=== PATIENT | male | born 1945 | race Caucasian/White ===

== ENCOUNTER → 2020-05-29 | Outpatient (CLI) | payer MEDICARE ==
[2020-05-29 14:41] LABS: Appearance,Urine Clear (Clear); Bilirubin,Urine Negative (Negative); Blood,Urine Negative (Negative); Color,Urine Light Yellow; Glucose,Urine (UA) Negative (Negative); Ketones,Urine Negative (Negative); Leukocyte Esterase,Urine Negative (Negative); Nitrite,Urine Negative (Negative); Protein,Urine Negative (Negative); Specific Gravity,Urine 1.007 (1.001-1.035); Urobilinogen,Urine <2.0 mg/dL (<2.0)
[2020-05-29 14:47] LABS: HCT 45.9 % (39.0-53.0); HGB 15.5 gm/dL (13.0-17.5); MCH 31.3 pg (25.0-35.0); MCHC 33.8 g/dL (31.0-37.0); MCV 92.7 fL (80.0-100.0); Mean Platelet Volume 8.4; Platelet Count 282 k/uL (150-450); RBC 4.95 m/uL (4.30-5.90); RDW 12.7 % (11.5-15.5); WBC 8.1 k/uL (3.8-10.6)
[2020-05-29 14:54] LABS: Partial Thromboplastin Time 26.1 sec (22.0-30.0); Prothrombin Time 10.5 sec (9.0-12.0)
[2020-05-29 14:57] LABS: Albumin 5.1 g/dL (3.5-5.0); Calcium 9.9 mg/dL (8.4-10.2); Total Bilirubin 0.5 mg/dL (0.2-1.3)
== END | disposition home or self-care (01) ==
LOC: LABPAT 12:46
PROVIDERS: ATTEND Orthopaedic Surgery
DX: Z01.818 Encounter for other preprocedural examination (principal); Z01.812 Encounter for preprocedural laboratory examination
CPT/HCPCS: 36415; 80053; 81003; 85027; 85610; 85730; 86850; 86900; 86901; 87070

== ENCOUNTER 2020-06-10 09:49 | Day surgery (SDC) | payer MEDICARE ==
[2020-06-02 15:09] VITALS: BMI 31.8
[~2020-06-10 09:49] MED LIST: ACETAMINOPHEN TAB 500 MG TAB PO ONE; DEXAMETHASONE SOD PHOSPHATE 10 MG/ML 1 ML VIAL IV ONE; GABAPENTIN 300 MG CAP PO ONE; HYDROcodone/APAP 5-325MG 1 EACH TAB PO PRN; HYDROmorphone 0.5 MG/0.5 ML SYRINGE IVP PRN; LIDOCAINE 1% (10MG/ML) FOR IV START INTRADERMA PRN; MAGNESIUM HYDROXIDE 2,400 MG/10 ML CUP PO PRN; MELOXICAM 7.5 MG TAB PO ONE; NALOXONE 0.4 MG/ML 1 ML VIAL IV PRN; ONDANSETRON 4 MG/2 ML VIAL IVP ONE; ONDANSETRON 4 MG/2 ML VIAL IVP PRN; ROPIVACAINE 246.25 MG, EPINEPHrine 0.5 MG, KETOROLAC 30 MG, cloNIDine HCL/PF 80 MCG, WA... MISCELLANE ONE; TRANEXAMIC ACID 1,000 MG in SODIUM CHLORIDE 0.9% 100 ML IVPB ONE; diazePAM 5 MG TAB PO PRN; hydrOXYzine pamoate 25 MG CAP PO PRN
[2020-06-10] MEDS: LACTATED RINGERS 1,000 ML IV SCH (10:10)
[2020-06-10] MEDS ORDERED: ACETAMINOPHEN TAB 500 MG TAB ONE (10:14)
[2020-06-10] MEDS ORDERED: ONDANSETRON 4 MG/2 ML VIAL ONE (10:14)
[2020-06-10] MEDS ORDERED: PHENYLEPHRINE-0.9% NACL SYG 1 MG/10 ML SYRINGE ONE (11:27)
[2020-06-10] MEDS ORDERED: PROPOFOL 10 MG/ML 20 ML VIAL IV ONE (11:27)
[2020-06-10] MEDS ORDERED: MIDAZOLAM 2 MG/2 ML VIAL ONE (11:27)
[2020-06-10] MEDS ORDERED: TRANEXAMIC ACID 1,000 MG/10 ML VIAL ONE (11:27)
[2020-06-10] MEDS ORDERED: SODIUM CHLORIDE 0.9% 100 ML BAG ONE (11:27)
[2020-06-10] MEDS ORDERED: SODIUM CHLORIDE 0.9% IRRIG 1,000 ML BTL IRRIGATION ONE (11:27)
[2020-06-10] MEDS ORDERED: diphenhydrAMINE 50 MG/ML 1 ML VIAL ONE (11:27)
[2020-06-10] MEDS ORDERED: fentaNYL (PF) 50 MCG/ML 2 ML AMP ONE (11:27)
[2020-06-10] MEDS ORDERED: HEPARIN SODIUM,PORCINE 10,000 UNIT/ML 1 ML VIAL ONE (11:27)
[2020-06-10] MEDS ORDERED: ceFAZolin 3,000 MG in SODIUM CHLORIDE 0.9% IRRIGATIO 3,000 ML IRRIGATION ONE (12:01)
[2020-06-10] MEDS ORDERED: LACTATED RINGERS 1,000 ML IV ONE (12:30)
--- NOTE | 2020-06-10 13:05 | P.OP ---
Date of Procedure: 06/10/20 Preoperative Diagnosis: Severe osteoarthritis right hip Postoperative Diagnosis: Severe osteoarthritis right hip Procedure(s) Performed: Right total hip arthroplasty with a direct anterior approach Implants: Morris and nephew Polarstem size 5 standard Morris & Nephew R3, 3 hole acetabular shell, 54 mm Morris [employer] Nephew reflection 6.5 mm cancellus screw, 20 mm 2 Morris [employer] Nephew R3, XLPE 20 acetabular liner Morris & Nephew Oxinium femoral head 36 m, +12 All components were press-fit. The articulation is Oxinium on polyethylene. Anesthesia: spinal Surgeon: Fabio Murphy Membership Manager #1: Martha Grimm Estimated Blood Loss (ml): 200 (115 mL returned with Cell Saver) Pathology: other (Femoral head) Condition: stable Disposition: PACU Indications for Procedure: After failure of conservative treatment we discussed the surgical and nonsurgical treatment options at length. Patient wishes to proceed with a total hip arthroplasty with a direct anterior approach. Complications specific to this procedure were discussed at length, including but not limited to infection, leg length discrepancy, dislocation, and nerve injury. Covid-19 was also discussed at length with the patient, and they are aware of the current policies and procedures. The patient was given the option of delaying surgery, but they elect to proceed knowing these risks. Patient is aware of all these complications and informed consent was obtained Operative Findings: The operative findings are consistent with severe osteoarthritis of the right hip Description of Procedure: Patient was seen and evaluated in the preoperative area, consent was reviewed, and the surgical site was marked with a skin marker. Patient was then brought to the operating room and given prophylactic antibiotics intravenously. 1 g of Tranexamic acid was also given. A spinal anesthetic was administered by the anesthesia department. The patient was then placed on the [place] table with the bony prominences well-padded. The hip area was then prepped and draped in usual sterile fashion. A universal timeout was then performed, which confirmed the patient's name, surgical site, ALLERGIES, and procedure being performed. Next the incision site was located at 1 cm distal and 1 cm lateral to the anterior superior iliac spine. The skin and subcutaneous tissues were sharply incised. Incision was carefully dissected down to the fascia overlying the tensor fascia flo muscle. This fascia was then incised in line with the incision. Next, using blunt finger dissection, the tensor fascia flo muscle was dissected off its investing fascia. The muscle was then carefully retracted laterally with a cobra retractor over the lateral neck of the femur. Next, the circumflex vessels were identified and cauterized using the AquaMantis device. The anterior hip capsule was then exposed. The capsule was then opened and an inverted T fashion. Cobra retractors were then placed intracapsularly. The proximal femur was then visualized. The femoral neck was then osteotomized appropriate level above the lesser trochanter. Small amount of traction was placed with the [place] table. A small wedge of bone was then removed from the remaining femoral head. Next, using a corkscrew femoral head was easily removed from the acetabulum. On gross visual inspection, the femoral head had complete loss of articular cartilage in multiple periarticular osteophytes. Attention was then turned to the acetabulum. the acetabulum was exposed and any remaining labrum was excised. Sequential reaming of the acetabulum was performed using fluoroscopic guidance. When the appropriate size was reached, a trial was then placed. The position and fit of the trial was checked with fluoroscopy. The trial was then removed. Then, using fluoroscopic guidance, the final implant was impacted at 20 of anteversion and 40 of abduction, and fully seated in the acetabulum. 2 screws were then placed in the acetabulum. Again fluoroscopy was used to check position of the screws. Next, the liner was then impacted, with a 20 elevated liner located in the anterior superior quadrant. Component locking was confirmed. Attention was then directed to the femur. With the aid of the [place] table, the femur was externally rotated to approximately 130, extended, and abducted under the opposite leg. A side hook was then placed under the proximal femur, and the side hook elevator was used to elevate the proximal femur. Retractors were then placed. A capsular release was performed, as well as a release of the conjoined tendon, which afforded excellent visualization of the proximal femur. Next, a box osteotome was used to lateralize the proximal femur. A yacht hand was then used to locate the femoral canal. Sequential broaching was then performed with appropriate size which afforded excellent fixation in the proximal femur. A trial was then placed with appropriate head and neck, and the hip was gently red uced with the aid of the [place] table. Fluoroscopy was then used to check position of the components, as well as to ensure equal leg lengths. The hip was then gently dislocated and the trials were then removed. Final implants were then impacted and the hip was again reduced. Final fluoroscopic x-rays confirmed that the components were in anatomic position, as well as equal leg lengths. The hip was also taken through range of motion, and found to be stable. The hip was then copiously irrigated with antibiotic solution with pulsatile lavage. The hip was then irrigated with Irrisept solution. The soft tissues were then injected with a ropivacaine solution, which consisted of 246.25 mg of ropivacaine, 0.5 mg of epinephrine, 30 mg of Toradol, 80 g of clonidine, and 48.45 mL of sterile water, for a total of 100 mL of fluid injected. A second dose of 1 g of Tranexamic acid was also given. the fascia was then closed with 2-0 strata fix suture. The subcutaneous tissue was closed with 3-0 Vicryl. The subcuticular tissue was closed with 3-0 strata fix suture. The skin was then closed with Dermabond glue and a sterile silver dressing. The patient was then transferred to the recovery room in stable condition. The billing assistant MARLENE Velázquez was required due to the complexity of surgery, and the need for skilled surgical scheduler for positioning, draping, exposure, retraction, and closure of the wound.
--- NOTE | 2020-06-10 13:06 | FL ---
Fluoroscopy History: Rt Anterior Hip RT Anterior Hip. [address] Murphy
--- NOTE | 2020-06-10 13:53 | XR ---
EXAMINATION TYPE: XR Hip Limited RT DATE OF EXAM: 06/10/2020 CLINICAL HISTORY: Postoperative evaluation TECHNIQUE: Single portable view of the right hip was submitted. FINDINGS: Noted are changes of total hip arthroplasty with femoral and acetabular components appearin g well seated. Alignment is anatomic. Postsurgical soft tissue changes are evident. IMPRESSION: Satisfactory postoperative alignment
[2020-06-10] MEDS ORDERED: CYCLOBENZAPRINE 10 MG TAB PO PRN (15:18)
[2020-06-10] MEDS ORDERED: MAGNESIUM OXIDE 400 MG TAB PO PRN (15:18)
[2020-06-10] MEDS ORDERED: MELATONIN 3 MG TABLET PO PRN (15:18)
[2020-06-10] MEDS ORDERED: FAMOTIDINE 20 MG TAB PO PRN (15:18)
[2020-06-10] MEDS: SODIUM CHLORIDE 0.9% 1,000 ML IV SCH ×2 (16:13→22:21)
[2020-06-10] MEDS: oxyCODONE-APAP 5-325MG 1 EACH TAB PO PRN (18:10)
[2020-06-10] MEDS ORDERED: NIACIN TR 500 MG CAPLET PO SCH (21:00)
[2020-06-10] MEDS ORDERED: SENNOSIDES-DOCUSATE SODIUM 1 EACH TAB PO SCH (21:00)
[2020-06-10] MEDS ORDERED: FENOFIBRATE 160 MG TAB PO SCH (21:00)
[2020-06-10] MEDS: ASPIRIN 325 MG TAB PO SCH (22:20)
--- NOTE | 2020-06-10 23:24 | P.CONS ---
History of Present Illness - Reason for Consult Consult date: 06/10/20 medical management Requesting physician: Fabio Murphy - Chief Complaint Right hip pain - History of Present Illness Consultation: This is a pleasant 74-year-old patient was chronic stable medical conditions include hyperlipidemia, osteoarthritis, GERD, muscle spasms. Has undergone right total hip arthroplasty. Postprocedure pain is controlled. No nausea or vomiting. No chest pain or shortness of breath. Did tolerate her diet. Laying in bed. No fever no chills. Review of systems: GEN.: None EYES: None HEENT: None NECK: None RESPIRATORY: None CARDIOVASCULAR: None GASTROINTESTINAL: Occasional heartburn GENITOURINARY: None MUSCULOSKELETAL: Joint pains, muscle spasm LYMPHATICS: None HEMATOLOGICAL: None PSYCHIATRY: None NEUROLOGICAL: None Past medical history to include: Hyperlipidemia, osteoarthritis, reflux, muscle spasms Social history: Does not smoke. One or 2 drinks a day. . Physical examination: VITAL SIGNS: 97.8, 109, 18, 130/75, 94% on room air GENERAL: BMI 32.0, propped up in bed, comfortable. EYES: Pupils equal. Conjunctiva normal. HEENT: External appearance of nose and ears normal, oral cavity grossly normal. NECK: JVD not raised; masses not palpable. HEART: First and second heart sounds are normal; no edema. LUNGS: Respiratory rate normal; clear to auscultation. ABDOMEN: Soft, nontender, liver spleen not palpable, no masses palpable. PSYCH: Alert and oriented x3; mood and affect normal. NEUROLOGICAL: Cranial nerves grossly intact; no facial asymmetry, power and sensation grossly intact. LYMPHATICS: No lymph nodes palpable in the axilla and neck MUSCULAR skeletal: Evidence of OA in the hands. Dressing over the right thigh anteriorly INVESTIGATIONS, reviewed in the clinical context: From May 29 White count 8.1 hemoglobin 15.5creatinine 1.2 Assessment: -Right total hip arthroplasty -Primary osteoarthritis -Hyperlipidemia -GERD --muscle spasms -Obesity BMI 32 Plan: Home medications to be resumed. Patient is on aspirin and Venodyne boots for DVT prophylaxis. Pain control in place. Get was discussed with the patient. Thank you Dr. Dr Murphy Past Medical History Past Medical History: Hyperlipidemia, Osteoarthritis (OA) Additional Past Medical History / Comment(s): HARD OF HEARING-BILATERAL HEARING AIDES History of Any Multi-Drug Resistant Organisms: None Reported Past Surgical History: Adenoidectomy, Joint Replacement, Orthopedic Surgery, Tonsillectomy Additional Past Surgical History / Comment(s): right knee replaced, ORIF left ankle, bunionectomy RIGHT FOOT, partial amputation right middle finger, rhinoplasty, replaced knuckle @base of right index finger Past Anesthesia/Blood Transfusion Reactions: No Reported Reaction Past Psychological History: No Psychological Hx Reported Smoking Status: Never smoker Past Alcohol Use History: Daily Additional Past Alcohol Use History / Comment(s): PATIENT REPORTS 1-2 CUPS DAILY ALCOHOL INTAKE-NO HISTORY OF ALCOHOL WITHDRAWL Past Drug Use History: None Reported - Past Family History Brother(s) Family Medical History: Cancer Medications and Allergies Home Medications Medication Instructions Recorded Confirmed Type Fenofibrate [Tricor] 160 mg PO HS 06/23/16 06/10/20 History Niacin [Niaspan] 500 mg PO HS 06/23/16 06/10/20 History Cider Vinegar [Apple Cider Vinegar] 300 mg PO DAILY 06/02/20 06/10/20 History Diclofenac Sodium [Voltaren] 75 mg PO BID 06/02/20 06/10/20 History Famotidine [Pepcid] 20 mg PO BID PRN 06/02/20 06/10/20 History Krill Oil 1,800 mg PO DAILY 06/02/20 06/10/20 History Magnesium 200 mg PO DAILY PRN 06/02/20 06/10/20 History Turmeric Root Extract [Turmeric] 1,000 mg PO DAILY 06/02/20 06/10/20 History Acetaminophen/Diphenhydramine 1 tab PO HS PRN 06/04/20 06/10/20 History [Tylenol PM 500-25mg] Cyclobenzaprine [Flexeril] 10 mg PO HS PRN 06/04/20 06/10/20 History Melatonin 3 mg PO HS PRN 06/04/20 06/10/20 History Allergies Allergy/AdvReac Type Severity Reaction Status Date / Time Eherhwy-Rzm-Lot Reductase AdvReac muscle Verified 06/10/20 10:17 Inhibitor cramps Physical Exam Vitals: Vital Signs Temp Pulse Pulse Resp BP Pulse Ox 06/10/20 19:40 97.8 F 109 H 18 130/75 94 L 06/10/20 15:45 97 122/87 93 L 06/10/20 15:30 94 132/81 94 L 06/10/20 15:15 96 128/79 94 L 06/10/20 15:00 97.4 F L 97 18 100/63 95 06/10/20 14:32 89 16 114/65 94 L 06/10/20 14:16 94 14 111/69 92 L 06/10/20 13:46 98 16 103/61 98 06/10/20 13:29 96.9 F L 107 H 18 100/58 94 L 06/10/20 10:19 96.7 F L 95 17 119/80 95 Intake and Output 06/10/20 06/10/20 06/11/20 14:59 22:59 06:59 Intake Total 1851 296 Output Total 200 500 Balance 1650 Intake: IV 1851 Oral 296 Output: Urine 500 Estimated Blood Loss 200 Other: # Voids 1 Weight 104.1 kg 104.1 kg
[2020-06-11] MEDS: LACTATED RINGERS 1,000 ML IV SCH (04:23)
[2020-06-11 07:01] VITALS: BP 113/75; PULSE 73; RESP 18; TEMP 98.5
[2020-06-11 08:05] LABS: Basophils % (A) 0 %; Eosinophils % (A) 0 %; HCT 37.2 % (39.0-53.0); Lymphocytes % (A) 14 %; MCH 30.2 pg (25.0-35.0); MCHC 32.6 g/dL (31.0-37.0); MCV 92.6 fL (80.0-100.0); Mean Platelet Volume 8.2; Monocytes % (A) 7 %; Neutrophils # (A) 11.5 k/uL (1.3-7.7); Neutrophils % (A) 78 %; Platelet Count 286 k/uL (150-450); RBC 4.02 m/uL (4.30-5.90); RDW 12.8 % (11.5-15.5); WBC 14.8 k/uL (3.8-10.6)
[2020-06-11 08:08] LABS: HGB 12.1 gm/dL (13.0-17.5)
[2020-06-11] MEDS: ASPIRIN 325 MG TAB PO SCH (08:40)
[2020-06-11] MEDS: oxyCODONE-APAP 5-325MG 1 EACH TAB PO PRN (08:40)
[2020-06-11] MEDS ORDERED: MELOXICAM 7.5 MG TAB PO SCH (09:00)
--- NOTE | 2020-06-11 09:46 | P.DS ---
Providers Expected date of discharge: 06/11/20 Attending physician: Fabio Murphy Consults: 06/10/20 06:52 Consult Physician Routine Consulting Provider: Anish Kern Consult Reason/Comments: medical management Do you want consulting provider notified?: Yes Primary care physician: Art Davenport - Discharge Diagnosis(es) (1) S/P total hip arthroplasty Current Visit: Yes Status: Acute (2) Osteoarthritis of right hip Current Visit: Yes Status: Acute Hospital Course: This is a 74-year-old male with known history of degenerative arthritis of the right hip. The patient presents for evaluation. After discussion and consideration patient elects to proceed with total hip arthroplasty. The patient is seen preoperatively by Dr. Murphy and medically cleared for surgery by their primary care physician. Patient is [facility] to [facility] on 06/10/2020 for total hip arthroplasty. The procedures performed without complication or sequelae. The patient is doing well postoperatively. Labs and vital signs are stable on day of discharge. On day of discharge patient's hip incision is healing well. There is minimal erythema. There is no drainage noted at this time. There is minimal soft tissue swelling to the hip and thigh. Patient has full foot and ankle motion without difficulty or pain. Calf is soft and nontender to palpation. Neurovascular status to the right lower extremity is intact. Patient is discharged home in good condition. Opioid start talking form is reviewed and signed at patient bedside. Please see med rec for accurate list of home medications. Plan - Discharge Summary Discharge Rx Participant: No New Discharge Prescriptions: New Aspirin 325 mg PO BID #60 tab oxyCODONE-APAP 5-325MG [Percocet 5-325 mg] 1 tab PO Q6HR PRN #20 tab PRN Reason: Pain Sennosides [Senokot] 2 tab PO DAILY PRN #60 tablet PRN Reason: Constipation No Action Niacin [Niaspan] 500 mg PO HS Fenofibrate [Tricor] 160 mg PO HS Famotidine [Pepcid] 20 mg PO BID PRN PRN Reason: Heartburn Diclofenac Sodium [Voltaren] 75 mg PO BID Turmeric Root Extract [Turmeric] 1,000 mg PO DAILY Magnesium 200 mg PO DAILY PRN PRN Reason: muscle cramps Krill Oil 1,800 mg PO DAILY Cider Vinegar [Apple Cider Vinegar] 300 mg PO DAILY Cyclobenzaprine [Flexeril] 10 mg PO HS PRN PRN Reason: sleep Acetaminophen/Diphenhydramine [Tylenol PM 500-25mg] 1 tab PO HS PRN PRN Reason: sleep Melatonin 3 mg PO HS PRN PRN Reason: sleep Discharge Medication List Fenofibrate [Tricor] 160 mg PO HS 06/23/16 [History] Niacin [Niaspan] 500 mg PO HS 06/23/16 [History] Cider Vinegar [Apple Cider Vinegar] 300 mg PO DAILY 06/02/20 [History] Diclofenac Sodium [Voltaren] 75 mg PO BID 06/02/20 [History] Famotidine [Pepcid] 20 mg PO BID PRN 06/02/20 [History] Krill Oil 1,800 mg PO DAILY 06/02/20 [History] Magnesium 200 mg PO DAILY PRN 06/02/20 [History] Turmeric Root Extract [Turmeric] 1,000 mg PO DAILY 06/02/20 [History] Acetaminophen/Diphenhydramine [Tylenol PM 500-25mg] 1 tab PO HS PRN 06/04/20 [History] Cyclobenzaprine [Flexeril] 10 mg PO HS PRN 06/04/20 [History] Melatonin 3 mg PO HS PRN 06/04/20 [History] Aspirin 325 mg PO BID #60 tab 06/11/20 [Rx] Sennosides [Senokot] 2 tab PO DAILY PRN #60 tablet 06/11/20 [Rx] oxyCODONE-APAP 5-325MG [Percocet 5-325 mg] 1 tab PO Q6HR PRN #20 tab 06/11/20 [Rx] Follow up Appointment(s)/Referral(s): [facility], [NON-STAFF] - As Needed Fabio Muprhy DO [Doctor of Osteopathic Medicine] - 2 Weeks Activity/Diet/Wound Care/Special Instructions: Weightbearing as tolerated with walker. Leave dressing intact. Dressing may be removed by home care nurse or by patient in 10 days. May shower with dressing on. Recommend use of compression stockings daily until follow up to help prevent swelling and blood clots. May remove at night before sleeping. Please follow-up with [facility] in 2 weeks and call with any questions or concerns, . Discharge Disposition: HOME WITH HOME HEALTH SERVICES
[2020-06-11] MEDS: SODIUM CHLORIDE 0.9% 1,000 ML IV SCH (11:56)
--- NOTE | 2020-06-12 18:46 | P.PN ---
Progress Note - Text Progress Note Date: 06/11/20 - Chief Complaint Right hip pain Consultation: This is a pleasant 74-year-old patient was chronic stable medical conditions include hyperlipidemia, osteoarthritis, GERD, muscle spasms. Has undergone right total hip arthroplasty. Today-doing well. Pain control. Has been out of bed. No nausea or vomiting. Did tolerate her diet. Feeling well. Review of systems: Was done for constitutional, cardiovascular, GI, pulmonary. relevant finding as above Current medications reviewed in today's electronic records Physical examination: VITAL SIGNS: 98.5, 73, 18, 130 no study 5, 95% room air GENERAL: Sitting up, comfortable. EYES: Pupils equal. Conjunctiva normal. HEENT: External appearance of nose and ears normal, oral cavity grossly normal. NECK: JVD not raised; masses not palpable. HEART: First and second heart sounds are normal; no edema. LUNGS: Respiratory rate normal; clear to auscultation. ABDOMEN: Soft, nontender, liver spleen not palpable, no masses palpable. PSYCH: Alert and oriented x3; mood and affect normal. INVESTIGATIONS, White count 14.8 hemoglobin 12.1 Previous testing: reviewed in the clinical context: From May 29 White count 8.1 hemoglobin 15.5creatinine 1.2 Assessment: -Right total hip arthroplasty -Primary osteoarthritis -Hyperlipidemia -GERD --muscle spasms -Obesity BMI 32 -Acute postprocedure blood loss anemia expected -Reactive leukocytosis from surgery. No clinical evidence of infection Plan: Doing well. Continue current medication. Follow with family Thank you Dr. Dr Murphy
== END 2020-06-11 12:18 | disposition home health service (06) ==
LOC: OR 09:49 → 4SSUR 14:06 → OR 06-11 12:18
PROVIDERS: ATTEND Orthopaedic Surgery
DX: M16.11 Unilateral primary osteoarthritis, right hip (principal); K21.9 Gastro-esophageal reflux disease without esophagitis; E78.2 Mixed hyperlipidemia; E66.9 Obesity, unspecified; H91.93 Unspecified hearing loss, bilateral; Z68.32 Body mass index [BMI] 32.0-32.9, adult; Z97.4 Presence of external hearing-aid; Z90.89 Acquired absence of other organs; Z96.651 Presence of right artificial knee joint; Z98.890 Other specified postprocedural states; Z79.1 Long term (current) use of non-steroidal anti-inflammatories (NSAID); Z79.899 Other long term (current) drug therapy; Z88.8 Allergy status to other drugs, medicaments and biological substances; Z80.9 Family history of malignant neoplasm, unspecified; Z97.3 Presence of spectacles and contact lenses
CPT/HCPCS: 97110; 97161; 97535; 97165; 86891; 86900 ×2; 86901 ×2; 85025; 86850 ×2; 88300; 73501 ×2; 27130; P9022; C1776; J0171; J1100; J0690 ×3; J2405; J1885; J2795; J0735; J1170

== ENCOUNTER → 2024-02-27 | Outpatient (CLI) | payer MEDICARE ==
[2024-02-27 11:07] LABS: Partial Thromboplastin Time 26.9 sec (22.0-30.0); Prothrombin Time 11.1 sec (10.0-12.5)
[2024-02-27 15:38] LABS: HCT 41.9 % (39.6-50.0); HGB 13.8 g/dL (13.0-17.0); MCH 30.1 pg (27.0-32.0); MCHC 32.9 g/dL (32.0-37.0); MCV 91.3 FL (80.0-97.0); NRBC Per 100 WBC 0 X 10*3/uL (0.00-0.01); Platelet Count 332 X 10*3/uL (140-440); RBC 4.59 X 10*6/uL (4.40-5.60); RDW 13.2 % (11.5-14.5); WBC 7.37 X 10*3/uL (4.50-10.00)
[2024-02-27 15:50] LABS: ALT 17 U/L (10-49); AST 19 U/L (14-35); Albumin 4.7 g/dL (3.8-4.9); Albumin/Globulin Ratio 1.81 Ratio (1.60-3.17); Alkaline Phosphatase 35 U/L (41-126); BUN/Creat Ratio 13.56 Ratio (12.00-20.00); Blood Urea Nitrogen 24.4 mg/dL (9.0-27.0); Calcium 9.7 mg/dL (8.7-10.3); Carbon Dioxide 22.7 mmol/L (21.6-31.8); Chloride 98 mmol/L (96-109); Globulin 2.6 g/dL (1.6-3.3); Glucose 104 mg/dL (70-110); Potassium 5.6 mmol/L (3.5-5.5); Sodium 134 mmol/L (135-145); Total Bilirubin 0.4 mg/dL (0.3-1.2); Total Protein 7.3 g/dL (6.2-8.2)
== END | disposition home or self-care (01) ==
LOC: LABPAT 09:50
PROVIDERS: ATTEND Orthopaedic Surgery
DX: Z01.818 Encounter for other preprocedural examination (principal); M17.12 Unilateral primary osteoarthritis, left knee; Z22.322 Carrier or suspected carrier of Methicillin resistant Staphylococcus aureus; R00.1 Bradycardia, unspecified
CPT/HCPCS: 36415; 80053; 85027; 85610; 85730; 87070; 93005

== ENCOUNTER 2024-03-27 09:42 | Day surgery (SDC) | payer MEDICARE ==
[~2024-03-27 09:42] MED LIST changes: -ACETAMINOPHEN TAB 500 MG TAB PO ONE; -DEXAMETHASONE SOD PHOSPHATE 10 MG/ML 1 ML VIAL IV ONE; -GABAPENTIN 300 MG CAP PO ONE; -HYDROcodone/APAP 5-325MG 1 EACH TAB PO PRN; -HYDROmorphone 0.5 MG/0.5 ML SYRINGE IVP PRN; -MAGNESIUM HYDROXIDE 2,400 MG/10 ML CUP PO PRN; -MELOXICAM 7.5 MG TAB PO ONE; +MIDAZOLAM 2 MG/2 ML VIAL IV PRN; -NALOXONE 0.4 MG/ML 1 ML VIAL IV PRN; -ONDANSETRON 4 MG/2 ML VIAL IVP ONE; -ONDANSETRON 4 MG/2 ML VIAL IVP PRN; -ROPIVACAINE 246.25 MG, EPINEPHrine 0.5 MG, KETOROLAC 30 MG, cloNIDine HCL/PF 80 MCG, WA... MISCELLANE ONE; +TRANEXAMIC 1,000 MG/100ML-NACL 1,000 MG in SALINE 1 100ML.BAG IVPB PRN; -TRANEXAMIC ACID 1,000 MG in SODIUM CHLORIDE 0.9% 100 ML IVPB ONE; -diazePAM 5 MG TAB PO PRN; -hydrOXYzine pamoate 25 MG CAP PO PRN
[2024-03-27] MEDS: LACTATED RINGERS 1,000 ML IV SCH (10:41)
[2024-03-27] MEDS: ACETAMINOPHEN TAB 500 MG TAB PO PRN (10:42)
[2024-03-27] MEDS: DEXAMETHASONE SOD PHOSPHATE 4 MG/ML 1 ML VIAL IV ONE (10:42)
[2024-03-27] MEDS: GABAPENTIN 300 MG CAP PO PRN (10:42)
[2024-03-27] MEDS: MELOXICAM 7.5 MG TAB PO PRN (10:42)
[2024-03-27] MEDS: ONDANSETRON 4 MG/2 ML VIAL IVP ONE (10:42)
[2024-03-27] MEDS ORDERED: HYDROmorphone 0.5 MG/0.5 ML SYRINGE IVP PRN ×2 (10:57)
[2024-03-27] MEDS ORDERED: NA PHOS,M-B/NA PHOS,DI-BA 133 ML ENEMA RECTAL PRN (10:57)
[2024-03-27] MEDS ORDERED: NALOXONE 0.4 MG/ML 1 ML VIAL IV PRN (10:57)
[2024-03-27] MEDS ORDERED: MAGNESIUM HYDROXIDE 2,400 MG/30 ML CUP PO PRN (10:57)
[2024-03-27] MEDS ORDERED: bisacodyL 10 MG SUPP RECTAL PRN (10:57)
[2024-03-27] MEDS ORDERED: MIDAZOLAM 2 MG/2 ML VIAL ONE (11:08)
[2024-03-27] MEDS ORDERED: PROPOFOL 10 MG/ML 20 ML VIAL IV ONE (11:08)
[2024-03-27] MEDS ORDERED: TRANEXAMIC 1,000 MG/100ML-NACL PREMIX BAG ONE (11:08)
[2024-03-27] MEDS ORDERED: ROPIVACAINE 5 MG/ML 30 ML VIAL ONE (11:08)
[2024-03-27] MEDS ORDERED: SODIUM CHLORIDE 0.9% (PF) 10 ML VIAL ONE (11:08)
[2024-03-27] MEDS: ceFAZolin 1,000 MG in SODIUM CHLORIDE 0.9% 1,000 ML IRRIGATION ONE (11:11)
--- NOTE | 2024-03-27 11:47 | P.ANPRN ---
Procedure Note - Anesthesia - Nerve Block Performed Left Jose Single Date of Procedure: 03/27/24 Procedure Start Time: 10:37 Procedure Stop Time: 10:41 Indication: Acute Post-Operative Pain, Requested by Surgeon Sedation Type: Sedate with meaningful contact maintained Preparation: Sterile Prep Position: Supine Needle Gauge: 21 Ultrasound used to visualize needle placement: Yes Ultrasound used to observe medication spread: Yes Injectate: 0.5% Ropivacaine (see comment for volume) Blood Aspirated: No Pain Paresthesia on Injection Noted: No Resistance on Injection: Normal Image Stored and Saved: Yes Events: Uneventful and Well Tolerated (Ropivacaine 0.25% 20 mls)
--- NOTE | 2024-03-27 11:49 | P.ANPRN ---
Procedure Note - Anesthesia - Nerve Block Performed Left Adductor Canal Infusion Date of Procedure: 03/27/24 Procedure Start Time: 08:42 Procedure Stop Time: 08:51 Indication: Acute Post-Operative Pain, Requested by Surgeon Sedation Type: Sedate with meaningful contact maintained Preparation: Sterile Prep Position: Supine Catheter: Indwelling Needle Types: On-Q Needle Gauge: 18 Ultrasound used to visualize needle placement: Yes Ultrasound used to observe medication spread: Yes Injectate: 0.5% Ropivacaine (see comment for volume) Blood Aspirated: No Pain Paresthesia on Injection Noted: No Resistance on Injection: Normal Image Stored and Saved: Yes Events: Uneventful and Well Tolerated (20 mls)
[2024-03-27] MEDS ORDERED: ROPIVACAINE 1,100 MG, SODIUM CHLORIDE 0.9% 500 ML 330 ML, EMPTY PAIN BALL 1 EACH MISCELLANE PRN (11:58)
--- NOTE | 2024-03-27 12:24 | P.OP ---
Date of Procedure: 03/27/24 Preoperative Diagnosis: severe osteoarthritis left knee Postoperative Diagnosis: severe osteoarthritis left knee Procedure(s) Performed: left total knee arthroplasty Implants: [employer] Journey II CR Oxinium cruciate retaining femoral component size 7, left [employer] Journey nonporous tibial baseplate size 6, left [employer] Journey II, XLPE Deep Dished articular insert, size 13 mm, Size 5-6, left [employer] Journey Keely II resurfacing patellar component, oval, 32 mm All components were cemented using Palacos R bone cement The articulation is Oxinium on polyethylene Anesthesia: spinal Surgeon: Fabio Murphy Instructor Dramatic Arts #1: Michelle Sultana Estimated Blood Loss (ml): 50 Pathology: none sent Condition: stable Disposition: PACU Indications for Procedure: The patient's knee is end-stage, and conservative management has failed. The operation of knee replacement has been discussed at length in the office, as well as potential risks and complications. These are inclusive of, but not limited to: Infection, bleeding, scarring, discomfort, stiffness, blood vessel and nerve damage, need for further surgery, failure to relieve symptoms, persistence, recurrence, or worsening of problems, loosening, dislocation, wear, blood clot, pulmonary embolism, , gait dysfunction, stiffness, and other risks as discussed in the office. Patient elects to proceed and the consent form has been signed. Operative Findings: the operative findings are consistent with severe osteoarthritis of the left knee Description of Procedure: The patient was seen in the preoperative area, the consent was reviewed and the operative site was marked with a skin marker. The patient verified the procedure and the operative site. An adductor canal pain catheter and an iPACK block were placed by anesthesia in the preoperative area. The patient was then brought to the operating room and positioned on the operating room table in the supine position. Preoperative antibiotics and a gram of tranexamic acid were given intravenously. A spinal anesthetic was administered by the anesthesia department. Care was taken to make sure that all pressure points were adequately padded. A tourniquet was placed on the upper thigh and the lower extremity was prepped with ChloraPrep and draped in usual sterile fashion. A universal time-out was then performed which confirmed the patient's name, surgical site, ALLERGIES, and consent. The lower extremity was then exsanguinated and tourniquet was inflated to 250 mmHg. A standard anterior midline approach to the knee was performed. The skin and subcutaneous tissue were sharply dissected down to the patellar tendon. A medial parapatellar arthrotomy was then performed. The knee was then extended, the patellar was everted, and the knee was flexed. The infra-patellar fat pad was removed in order to enhance exposure. The anterior horns of both menisci were excised, and a release was performed to the posterior medial aspect of the knee. On gross visual inspection, there was complete loss of articular cartilage in the medial and patellofemoral joint spaces. There was also significant cartilage damage in the lateral compartment. There were multiple periarticular osteophytes globally about the knee which were then removed with a Ronguer. The femoral canal was then opened with the 9.5 mm intramedullary drill. The 8 mm intramedullary allyson was then inserted into the femoral canal with the distal femoral cutting guide set for 5 of valgus. The distal femoral cutting block was then pinned in place. The intramedullary allyson was then removed, and the distal femur was then cut. The cutting block was then removed and the cut was checked for symmetry. The resected bone was then measured to confirm the appropriate distal femoral resection. Next, the sizing guide was then placed and set for 3 external rotation based off of the epicondylar axis and Moraga's line. Pins were then placed and the drill holes, and the femur was sized with the sizing stylus. The pins were then removed, and the sizing guide was then removed. The spikes of the appropriate size femoral block was then placed into the predrilled holes, and malleted into place. Two 45 mm pins were then placed into the fixation holes on the cutting block. An tosin wing was then used to ensure there would be no notching with the anterior cut. The anterior condyles were cut without notching. The anterior chord cut was then performed, followed by the posterior cut, posterior chamfer cut, and the anterior chamfer cut. The collateral ligaments were protected during the entire process. The cutting block was then removed. Any remaining bone and osteophytes were removed from the femur with a Ronguer. Attention was then directed to the tibia. The remaining ACL was removed with a Ronguer, and the tibia was then gently subluxed forward with a large bent knee retractor. Any remaining menisci were excised. The posterior lateral corner was cauterized in order to coagulate the lateral geniculate artery. The extra medullary tibial cutting guide was then placed, set for the appropriate rotation, slope, and depth of resection. The proximal tibia cutting guide was then pinned in place. Proximal tibia was then cut and sized. A curved osteotome was then used to remove any posterior osteophytes from the distal femur. The femoral trial was placed. A narrow saw blade was then used to remove the anterior intracondylar femoral bone. The CR notch trial was then placed. The tibial trial was placed with the appropriate-sized insert. The knee was able to fully extend and flex to 130 and was stable throughout all range of motion. The knee was then extended and the patella was everted. Patella was then measured, and then using an osteotomy guide, the patella was cut at the appropriate level. The patellar component was sized. The patellar drill guide was placed and the patella was drilled. The patella trial was then placed. The knee was then taken through range of motion with the patella trial and the patella tracked normally using the no thumbs technique. The patella trial was then removed. The knee was then flexed and lug holes were drilled through the femoral trial and the femoral trial was then removed. The tibial was then re- exposed, and the tibial broach guide was then pinned in place after it was set for the appropriate rotation to allow for the most coverage without overhang. The tibia was then reamed and broached. The femoral canal was plugged with autologous bone. The cut surfaces of bone were then irrigated with pulsatile lavage. The knee was also irrigated with Irrisept solution. The components were then opened, the cement was mixed. Cement was placed on the backside of the femoral, tibial, and patellar components. Cement was then applied to the tibial surface and pressurized into the surface using finger pressurization technique. The tibial component was then applied and excess cement was removed after it was impacted securely noted to be flush with the cut surface. In similar fashion, the cement was applied to the cut femoral surface, pressur ized and using finger pressurization the component was impacted in place. Excess cement was removed. The polyethylene spacer was then implanted and locked into position. Patellar component was then applied in a similar technique and the patellar clamp was used to hold patella in place while the cement hardened. The knee was held in full extension while the cement hardened. Once the cement had fully hardened, the knee was reinspected. Any other cement extrusion was removed the final range of motion testing showed range of motion from 0-130 with excellent stability, both medial and laterally and appropriate alignment of the leg. Patella tracked normally. After the cemented hardened, the tourniquet was released and hemostasis was obtained. A second gram of transexamic acid was given intravenously. The knee was again irrigated. The knee was again taken through range of motion and found to be stable throughout all range of motion of 0-130, and the patella tracked normally. The fascia was then closed with 0 Vicryl followed by #2 strata fix suture. The subcutaneous tissue was closed with 3-0 Vicryl and 3-0 strata fix. Exofin glue was used for the skin and placed with the knee in flexion. After the glue had dried, and Optafoam silver impregnated dressing was applied. A lightly compressive dressing was applied using web roll and Azam wrap. Patient was then transferred to the stretcher and taken to recovery room in stable condition. Sponge and needle counts were correct. The career services assistant MARLENE Ro was required due the complexity surgery and the need for a skilled surgical resident. She assisted in positioning, draping, retraction, and closure of the wound.
[2024-03-27] MEDS: ROPIVACAINE 1,100 MG, SODIUM CHLORIDE 0.9% 500 ML 330 ML, EMPTY PAIN BALL 1 EACH MISCELLANE PRN (13:21)
--- NOTE | 2024-03-27 14:22 | XR ---
EXAMINATION TYPE: XR knee limited LT DATE OF EXAM: 03/27/2024 COMPARISON: NONE HISTORY: 78-year-old male evaluation for postoperative abnormality and alignment TECHNIQUE: 2 views FINDINGS: Images show placement of left total knee arthroplasty. Both distal femoral and proximal tib ial components of the prosthesis are well seated without prosthetic fracture. Alignment grossly anato eric. Anterior soft tissue swelling as well as soft tissue air related to recent operation. IMPRESSION: Uncomplicated postoperative appearance left total knee arthroplasty.
[2024-03-27] MEDS: HYDROmorphone 0.5 MG/0.5 ML SYRINGE IVP PRN ×2 (14:44→17:34)
[2024-03-27] MEDS: HYDROcodone/APAP 7.5-325MG 1 EACH TAB PO PRN ×2 (15:22→15:43)
[2024-03-27] MEDS: SODIUM CHLORIDE 0.9% 1,000 ML IV SCH (17:09)
[2024-03-27] MEDS: oxyCODONE-APAP 5-325MG 1 EACH TAB PO PRN (20:10)
[2024-03-27] MEDS: SENNOSIDES-DOCUSATE SODIUM 1 EACH TAB PO SCH (20:10)
[2024-03-27] MEDS: ASPIRIN 325 MG TAB PO SCH (20:10)
[2024-03-27] MEDS: ONDANSETRON 4 MG/2 ML VIAL IVP PRN (20:38)
[2024-03-28 01:28] VITALS: PULSE 79
[2024-03-28] MEDS: FAMOTIDINE 20 MG TAB PO PRN (03:11)
--- NOTE | 2024-03-28 06:23 | P.PN ---
Progress Note - Text Progress Note Date: 03/28/24 Postoperative day # 1 status post total knee arthroplasty, under spinal anesth esia, and adductor canal catheter placed for postoperative analgesia. Currently on ropivacaine 0.2% 8 mL per hour with continuous infusion. I have increasing confusion to 10 ML's an hour There is no erythema, and there is no tenderness at site of catheter insertion. He has been able to stand up and ambulate. His pain is mostly spasms below the knee VAS: 6/10 Breakthrough Meds: When necessary Percocet Complications: None . Plan: Plan is to continue: Plans to continue the current settings. Patient will go home as planned.
[2024-03-28] MEDS: PROPRANOLOL LA 60 MG CAP.SA.24H PO SCH (08:26)
--- NOTE | 2024-03-28 09:53 | P.DS ---
Providers Expected date of discharge: 03/28/24 Attending physician: Fabio Murphy Consults: 03/27/24 10:57 Consult Physician Routine Consulting Provider: Anish Kern Consult Reason/Comments: medical management Do you want consulting provider notified?: Yes Primary care physician: Art Davenport - Discharge Diagnosis(es) (1) Osteoarthritis of left knee Current Visit: Yes Status: Acute (2) Status post total left knee replacement Current Visit: Yes Status: Acute Hospital Course: This is a 78-year-old male with known history of degenerative arthritis of the left knee. The patient presented for evaluation as an outpatient. After di scussion and consideration patient elects to proceed with total knee arthroplasty. The patient is seen preoperatively by Dr. Murphy and medically cleared for surgery by their primary care physician. Patient is admitted to [facility] on 03/27/2024 for total knee arthroplasty. The procedure is performed without complication or sequelae. The patient is doing well postoperatively. Labs and vital signs are stable on day of discharge. On day of discharge patient's knee incision is healing well. There is minimal erythema. There is no drainage noted at this time. There is minimal soft tissue swelling to the knee. Patient has full foot and ankle motion without difficulty or pain. Calf is soft and nontender to palpation. Neurovascular status to the left lower extremity is intact. Patient is discharged home in good condition. Please see med rec for accurate list of home medications. Plan - Discharge Summary Discharge Rx Participant: No New Discharge Prescriptions: New Aspirin 325 mg PO BID #60 tab Sennosides [Senokot] 2 tab PO DAILY PRN #60 tablet PRN Reason: Constipation oxyCODONE-APAP 5-325MG [Percocet 5-325 mg] 1 tab PO Q6HR PRN #20 tab PRN Reason: Pain No Action Niacin [Niaspan] 500 mg PO HS Fenofibrate [Lofibra] 160 mg PO HS Famotidine [Pepcid] 20 mg PO BID PRN PRN Reason: Heartburn Sennosides [Senokot] 2 tab PO DAILY PRN #60 tablet PRN Reason: Constipation Propranolol HCl [Inderal] 60 mg PO QAM Diclofenac Sodium [Voltaren] 75 mg PO BID Lutein 1 tab PO QAM Cbd/Thc Tincture 0.5 ml PO BID PRN PRN Reason: Pain Discharge Medication List Fenofibrate [Lofibra] 160 mg PO HS 06/23/16 [History] Niacin [Niaspan] 500 mg PO HS 06/23/16 [History] Famotidine [Pepcid] 20 mg PO BID PRN 06/02/20 [History] Sennosides [Senokot] 2 tab PO DAILY PRN #60 tablet 06/11/20 [Rx] Cbd/Thc Tincture 0.5 ml PO BID PRN 03/21/24 [History] Diclofenac Sodium [Voltaren] 75 mg PO BID 03/21/24 [History] Lutein 1 tab PO QAM 03/21/24 [History] Propranolol HCl [Inderal] 60 mg PO QAM 03/21/24 [History] Aspirin 325 mg PO BID #60 tab 03/27/24 [Rx] Sennosides [Senokot] 2 tab PO DAILY PRN #60 tablet 03/27/24 [Rx] oxyCODONE-APAP 5-325MG [Percocet 5-325 mg] 1 tab PO Q6HR PRN #20 tab 03/28/24 [Rx] Follow up Appointment(s)/Referral(s): [facility],Equipment [NON-STAFF] - As Needed (*Please call [facility] to arrange delivery of the Continuous Passive Motion (CPM) machine. ) [facility], [NON-STAFF] - 1-2 Days ([facility] will call you to schedule your in home physical therapy visits.) Fabio Murphy DO [Doctor of Osteopathic Medicine] - 2 Weeks Activity/Diet/Wound Care/Special Instructions: Weightbearing as tolerated with a walker. CPM 5-6h daily as tolerated. Leave dressing intact. Dressing may be removed by home care nurse or by patient in 7 days. Then change dressing twice daily until follow up. May shower with initial dressing intact and after removal. If dressing become saturated, please remove. Recommend use of compression stockings daily until follow up to help prevent swelling and blood clots. May remove at night before sleeping. Please take aspirin 325mg twice daily for 30 days to prevent blood clots. Please follow up with [facility] and call with any questions or concerns, . Discharge Disposition: HOME WITH HOME HEALTH SERVICES
[2024-03-28 10:27] LABS: Basophils # (A) 0.05 X 10*3/uL (0.00-0.10); Basophils % (A) 0.4 %; Eosinophils # (A) 0.06 X 10*3/uL (0.04-0.35); Eosinophils % (A) 0.5 %; HCT 34.9 % (39.6-50.0); HGB 11.4 g/dL (13.0-17.0); Lymphocytes # (A) 2.14 X 10*3/uL (0.90-5.00); Lymphocytes % (A) 16.9 %; MCH 30.4 pg (27.0-32.0); MCHC 32.7 g/dL (32.0-37.0); MCV 93.1 FL (80.0-97.0); Mean Platelet Volume 10.5 FL (9.5-12.2); Monocytes # (A) 1.37 X 10*3/uL (0.20-1.00); Monocytes % (A) 10.8 %; NRBC Per 100 WBC 0 X 10*3/uL (0.00-0.01); Neutrophils # (A) 9.01 X 10*3/uL (1.80-7.70); Neutrophils % (A) 70.9 %; Platelet Count 272 X 10*3/uL (140-440); RBC 3.75 X 10*6/uL (4.40-5.60); RDW 13.2 % (11.5-14.5); WBC 12.69 X 10*3/uL (4.50-10.00)
[2024-03-28 10:52] VITALS: BP 132/75; RESP 18; TEMP 98.1
--- NOTE | 2024-03-28 14:41 | P.CONS ---
History of Present Illness - Reason for Consult Consult date: 03/28/24 Medical management - Chief Complaint Left knee surgery - History of Present Illness This is a pleasant 78-year-old patient, follows with PCP Dr. Art Davenport. Was chronic stable medical conditions include hyperlipidemia, osteoarthritis, GERD, muscle spasms. Patient underwent left total knee arthroplasty by Dr. Murphy. This morning slightly dizzy. Did tolerate his diet. Some pain at operative site. No chest pain or shortness of breath. at the bedside. Review of systems: GEN.: None EYES: None HEENT: None NECK: None RESPIRATORY: None CARDIOVASCULAR: None GASTROINTESTINAL: None GENITOURINARY: None MUSCULOSKELETAL: Joint pains LYMPHATICS: None HEMATOLOGICAL: None PSYCHIATRY: None NEUROLOGICAL: None Social history: Drinks 1 or 2 glasses of wine a day. THC for pain. 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 . Physical examination: VITAL SIGNS: 88.1, 18, 79, 132 x 75, 96% room air GENERAL: Sitting up in a chair, comfortable EYES: Pupils equal. Conjunctiva normal. HEENT: External appearance of nose and ears normal, oral cavity grossly normal. NECK: JVD not raised; masses not palpable. HEART: First and second heart sounds are normal; no edema. LUNGS: Respiratory rate normal; clear to auscultation. ABDOMEN: Soft, nontender, liver spleen not palpable, no masses palpable. PSYCH: Alert and oriented x3; mood and affect normal. MUSCULOSKELETAL: Evidence of OA. Dressing of the left knee. INVESTIGATIONS, March 28, 2024: White count 12.6 hemoglobin 11.4 platelets 272 Previous testing February 27, 2024: White count 7.3 hemoglobin 13.8 Assessment and plan: -Total knee arthroplasty Aspirin 325 twice daily for DVT prophylaxis. -Primary osteoarthritis Tylenol as needed -Hyperlipidemia niasin. Lofibra. -GERD Pepcid --muscle spasms -Obesity 33 Weight loss measures -Acute postprocedure blood loss anemia, as expected from surgery Ferrous sulfate 325 mg p.o. daily -Reactive leukocytosis from surgery. No clinical evidence of infection Care was discussed with the patient . Questions answered. Ferrous sulfate added. Follow-up with PCP in a week. Thank Dr. Murphy Past Medical History Past Medical History: Hyperlipidemia, Hypertension, Osteoarthritis (OA) Additional Past Medical History / Comment(s): HARD OF HEARING-BILATERAL HEARING AIDES, benign essential tremor History of Any Multi-Drug Resistant Organisms: None Reported Past Surgical History: Adenoidectomy, Joint Replacement, Orthopedic Surgery, Ton sillectomy Additional Past Surgical History / Comment(s): Rt. TKA, ORIF left ankle, bunionectomy RIGHT FOOT, partial amputation right middle finger, rhinoplasty, replaced knuckle @base of right index finger, Rt. DONAVAN 2019, bilat. cataract surgery Past Anesthesia/Blood Transfusion Reactions: No Reported Reaction Past Psychological History: No Psychological Hx Reported Smoking Status: Never smoker Past Alcohol Use History: Daily Additional Past Alcohol Use History / Comment(s): PATIENT REPORTS 1-2 glasses wine DAILY ALCOHOL INTAKE-NO HISTORY OF ALCOHOL WITHDRAWL Past Drug Use History: Marijuana Additional Drug Use History / Comment(s): CBD/THC tincture orally once per day usually sometimes twice - Past Family History Brother(s) Family Medical History: Cancer Additional Family Medical History / Comment(s): pancreatic cancer Sister(s) Family Medical History: Cancer Additional Family Medical History / Comment(s): ovarian cancer Medications and Allergies Home Medications Medication Instructions Recorded Confirmed Type Fenofibrate [Lofibra] 160 mg PO HS 06/23/16 03/21/24 History Niacin [Niaspan] 500 mg PO HS 06/23/16 03/21/24 History Famotidine [Pepcid] 20 mg PO BID PRN 06/02/20 03/21/24 History Sennosides [Senokot] 2 tab PO DAILY PRN #60 tablet 06/11/20 03/21/24 Rx Cbd/Thc Tincture 0.5 ml PO BID PRN 03/21/24 03/21/24 History Diclofenac Sodium [Voltaren] 75 mg PO BID 03/21/24 03/21/24 History Lutein 1 tab PO QAM 03/21/24 03/21/24 History Propranolol HCl [Inderal] 60 mg PO QAM 03/21/24 03/21/24 History Aspirin 325 mg PO BID #60 tab 03/27/24 Rx Sennosides [Senokot] 2 tab PO DAILY PRN #60 tablet 03/27/24 Rx Ferrous Sulfate [Iron (65 MG 325 mg PO DAILY #30 tab 03/28/24 Rx Elemental)] oxyCODONE-APAP 5-325MG [Percocet 1 tab PO Q6HR PRN #20 tab 03/28/24 Rx 5-325 mg] Allergies Allergy/AdvReac Type Severity Reaction Status Date / Time [id number]-[id number] Reductase AdvReac muscle Verified 03/27/24 10:06 Inhibitor cramps [Nqofyxw-Jjb-Yvl Reductase Inhibitor] Physical Exam Vitals: Vital Signs Temp Pulse Pulse Pulse Resp BP Pulse Ox 03/28/24 08:00 98.1 F 18 132/75 96 03/28/24 01:08 97.5 F L 79 16 146/82 96 03/27/24 19:05 98.4 F 78 16 164/97 95 03/27/24 17:57 97.8 F 85 17 117/71 91 L 03/27/24 17:21 97.6 F 03/27/24 15:52 71 16 164/84 99 03/27/24 15:36 67 18 149/86 99 03/27/24 15:06 81 18 142/85 98 03/27/24 14:36 60 11 L 123/84 99 03/27/24 14:06 49 L 13 146/63 99 03/27/24 13:36 50 L 12 134/60 99 03/27/24 13:21 49 L 13 117/65 100 03/27/24 13:06 60 14 119/64 100 03/27/24 12:51 96.8 F L 64 16 106/69 97 03/27/24 11:05 60 16 157/72 100 03/27/24 10:15 96.8 F L 60 16 178/99 97 Intake and Output 03/27/24 03/28/24 03/28/24 22:59 06:59 14:59 Intake Total 120 Balance 120 Intake: Oral 120 Other: # Voids 0 1 Weight 104.3 kg Results CBC & Chem 7: 03/28/24 05:10 03/27/24 10:24 Labs: Abnormal Lab Results - Last 24 Hours (Table) 03/27/24 Range/Units 10:24 Potassium 5.4 H (3.5-5.1) mmol/L
== END 2024-03-28 11:10 | disposition home health service (06) ==
LOC: OR 09:42 → 4SSUR 12:47 → OR 03-28 11:10
PROVIDERS: ATTEND Orthopaedic Surgery
DX: M17.12 Unilateral primary osteoarthritis, left knee (principal); G89.18 Other acute postprocedural pain; E78.5 Hyperlipidemia, unspecified; Z79.899 Other long term (current) drug therapy
CPT/HCPCS: 27447; 64999; 64447; 84132; 73560; J1100; J0690 ×2; J2405; J2795; J1170; 64448; 85025

== ENCOUNTER 2024-04-29 15:10 | Observation (INO) | payer MEDICARE ==
[2024-04-29] MEDS: HYDROmorphone 1 MG/ML 1 ML SYRINGE IVP STA (15:35)
[2024-04-29] MEDS: KETOROLAC 15 MG/ML 1 ML VIAL IVP STA (15:35)
[2024-04-29] MEDS ORDERED: VANCOMYCIN IV PER PHARMACY 1 EACH MISC MISCELLANE PRN (15:40)
[2024-04-29] MEDS: ORPHENADRINE 30 MG/ML 2 ML VIAL IVP STA (16:04)
--- NOTE | 2024-04-29 16:04 | ED ---
Extremity Problem HPI - General Chief complaint: Extremity Problem,Nontraumatic Stated complaint: Post op complications, Left leg pain Time Seen by Provider: 04/29/24 15:16 Source: patient, RN notes reviewed Mode of arrival: EMS Limitations: no limitations - History of Present Illness Initial comments: This is a 78-year-old male who presents to the emergency department for left leg pain. Patient presented to [facility] emergency department this morning for severe left leg pain. This began yesterday gradually and became very severe this morning. Describes this as aching and pressure-like. He had a total left knee arthroplasty on 03/21/[address] Murphy. He then had evacuation of hematoma to the same area 10 days ago. Denies any fever/chills, nausea, vomiting, or dizziness. Patient was found to have an elevated white blood cell count, elevated potassium, elevated lactic acid, and very low sodium in the emergency department at [place]. He was transferred to our facility for orthopedic consultation. MD Complaint: extremity pain, extremity swelling - Related Data Home Medications Medication Instructions Recorded Confirmed Fenofibrate [Lofibra] 160 mg PO HS 06/23/16 04/29/24 Famotidine [Pepcid] 20 mg PO HS 06/02/20 04/29/24 Diclofenac Sodium [Voltaren] 75 mg PO BID 03/21/24 04/29/24 Lutein 20 mg PO DAILY 03/21/24 04/29/24 Cephalexin [Keflex] 500 mg PO QID 04/29/24 04/29/24 Cyclobenzaprine [Flexeril] 10 mg PO TID PRN 04/29/24 04/29/24 Docusate [Colace] 200 mg PO HS 04/29/24 04/29/24 Fiber Choice 2 cap PO HS 04/29/24 04/29/24 Niacin [Niavasc] 500 mg PO HS 04/29/24 04/29/24 Propranolol LA [Inderal LA] 60 mg PO DAILY 04/29/24 04/29/24 Previous Rx's Medication Instructions Recorded oxyCODONE-APAP 5-325MG [Percocet 1 tab PO Q6HR PRN #20 tab 03/28/24 5-325 mg] Allergies Allergy/AdvReac Type Severity Reaction Status Date / Time Yvbeeni-MYN-QqL Reductase AdvReac muscle Verified 04/29/24 18:21 Inhibitor cramps [Xvpjabp-Ipr-Cid Reductase Inhibitor] Review of Systems ROS Statement: Those systems with pertinent positive or pertinent negative responses have been documented in the HPI. ROS Other: All systems not noted in ROS Statement are negative. Past Medical History Past Medical History: Hyperlipidemia, Hypertension, Osteoarthritis (OA) Additional Past Medical History / Comment(s): HARD OF HEARING-BILATERAL HEARING AIDES, benign essential tremor History of Any Multi-Drug Resistant Organisms: None Reported Past Surgical History: Adenoidectomy, Joint Replacement, Orthopedic Surgery, Tonsillectomy Additional Past Surgical History / Comment(s): Rt. TKA, ORIF left ankle, bunionectomy RIGHT FOOT, partial amputation right middle finger, rhinoplasty, replaced knuckle @base of right index finger, Rt. DONVAAN 2019, bilat. cataract surgery Past Anesthesia/Blood Transfusion Reactions: No Reported Reaction Past Psychological History: No Psychological Hx Reported Smoking Status: Never smoker Past Alcohol Use History: Daily Past Drug Use History: Marijuana - Past Family History Brother(s) Family Medical History: Cancer Additional Family Medical History / Comment(s): pancreatic cancer Sister(s) Family Medical History: Cancer Additional Family Medical History / Comment(s): ovarian cancer General Exam Limitations: no limitations General appearance: alert, in distress Head exam: Present: atraumatic, normocephalic, normal inspection Respiratory exam: Present: normal lung sounds bilaterally. Absent: respiratory distress, wheezes, rales, rhonchi, stridor Cardiovascular Exam: Present: regular rate, normal rhythm, normal heart sounds. Absent: systolic murmur, diastolic murmur, rubs, gallop, clicks Extremities exam: Present: other (His left thigh is extremely firm on exam. Generalized swelling over the left knee. No erythema or warmth. Surgical incision is clean, dry, and intact. 2+ DP and PT pulses.) Neurological exam: Present: alert, oriented X3, CN II-XII intact Psychiatric exam: Present: normal affect, normal mood Course Vital Signs 04/29/24 04/29/24 15:21 17:19 Temperature 98.4 F Pulse Rate 72 85 Respiratory 16 16 Rate Blood Pressure 132/101 145/80 O2 Sat by Pulse 99 95 Oximetry Medical Decision Making - Medical Decision Making This is a 78 year old male who presents to the emergency department for left leg pain. Was pt. sent in by a medical professional or institution? @ -No Did you speak to anyone other than the patient for history? @ -No Did you review nursing and triage notes? @ -Yes, and I agree, it is accurate with regards to the patient's symptoms. Were old charts reviewed? @ -Outside records from [facility]: WBC: 17.4 Neutrophils: 13.4 Na: 122 Potassium: 6.0 Creatinine: 1.5 eGFR: 46 Lactic acid: 2.7 Differential Diagnosis? @ -Differential Leg Pain: Leg fracture, leg sprain, DVT, PVD, arterial insufficiency, iliac artery aneurysm, cellulitis, compartment syndrome, tendinopathy, nerve entrapment, piriformis syndrome, osteoarthritis, rhabdomyolysis, myositis, cramping from an electrolyte imbalance, this is not meant to be an all inclusive list. EKG interpreted by me (3pts min.)? @ -Initially done at [place], repeat EKG ordered and pending at time of admission X-rays interpreted by me (1pt min.)? @ -Not obtained CT interpreted by me (1pt min.)? @ -CT scan of the left lower extremity obtained. My interpretation identifies an enlarged heterogeneous joint compartment. U/S interpreted by me (1pt. min.)? @ -Not obtained What testing was considered but not performed? (CT, X-rays, U/S, labs)? Why? @ -None What meds were considered but not given? Why? @ -None Did you discuss the management of the patient with other professionals? @ -Yes, Dr. Murphy, orthopedics, who advised a CT scan of the left lower extremity and admission to himself with medicine listed as consult. Did you reconcile home meds? @ -Yes Was smoking cessation discussed for >3mins.? @ -No Was critical care preformed (if so, how long)? @ -No Were there social determinants of health that impacted care today? How? (Homelessness, low income, unemployed, alcoholism, drug addiction, transportation, low edu. Level, literacy, decrease access to med. care, prison, rehab)? @ -No Was there de-escalation of care discussed even if they declined? (Discuss DNR or withdrawal of care, Hospice)? @ -No What co-morbidities impacted this encounter? (DM, HTN, Smoking, COPD, CAD, Cancer, CVA, Hep., AIDS, mental health diagnosis, sleep apnea, morbid obesity)? @ -Osteoarthritis Was patient admitted / discharged? @ -Admitted. Records of the patient from [facility] were thoroughly reviewed. Of note, patient was found to have leukocytosis with a white blood cell count of 17.4. He was also fairly hyponatremic with a sodium of 122 and hypokalemia with a potassium of 6.0. Lactic acid elevated at 2.7. Patient transferred here for orthopedic evaluation due to recent orthopedic intervention. Given the leukocytosis and the patient's symptoms and recent intervention, he was started on antibiotics when he arrived. Blood cultures were obtained and he was started on vancomycin and cefepime for any potential infectious component. Patient noted to have a very firm and painful thigh on exam. He has strong equal pulses bilaterally. Repeat lab work here demonstrates resolution of previous leukocytosis. He is still hyponatremic, however this has improved and is now 125. Potassium also improved at 5.2. CRP only mildly elevated at 1.3. CT scan of the left lower extremity obtained demonstrating an enlarged heterogeneous anterior joint compartment involving the left vastus intermedius muscle thought to represent a large intramuscular hematoma. Findings extend from near its origin to insertion inferiorly. The left knee arthroplasty has a large knee joint effusion likely representing blood clots. Case discussed with Dr. Murphy, orthopedics. He will plan on monitoring him for the mean time and will keep the patient NPO after midnight for potential surgical intervention tomorrow. Consult placed for medicine for medical management as well as nephrology regarding the hyponatremia. Undiagnosed new problem with uncertain prognosis? @ -None Drug Therapy requiring intensive monitoring for toxicity (Heparin, Nitro, Insulin, Cardizem)? @ -None Were any procedures done? @ -None Diagnosis/symptom? @ -Intramuscular hematoma, s/p left knee arthroplasty, hyponatremia Acute, or Chronic, or Acute on Chronic? @ -Acute Uncomplicated (without systemic symptoms) or Complicated (systemic symptoms)? @ -Complicated Side effects of treatment? @ -None Exacerbation, Progression, or Severe Exacerbation] @ -Not applicable Poses a threat to life or bodily function? @ -Yes This case was discussed in detail with the attending ED physician, Dr. Franco. Presentation, findings, and treatment plan discussed in detail as well. - Lab Data Result diagrams: 04/29/24 16:15 04/29/24 16:15 Lab Results 04/29/24 04/29/24 04/29/24 Range/Units 16:15 16:15 16:15 WBC 10.3 (3.8-10.6) k/uL RBC 3.01 L (4.30-5.90) m/uL Hgb 9.1 L (13.0-17.5) gm/dL Hct 28.2 L (39.0-53.0) % MCV 93.4 (80.0-100.0) fL MCH 30.1 (25.0-35.0) pg MCHC 32.2 (31.0-37.0) g/dL RDW 13.1 (11.5-15.5) % Plt Count 405 (150-450) k/uL MPV 7.6 Neutrophils % 72 % Lymphocytes % 17 % Monocytes % 7 % Eosinophils % 1 % Basophils % 1 % Neutrophils # 7.5 (1.3-7.7) k/uL Lymphocytes # 1.7 (1.0-4.8) k/uL Monocytes # 0.8 (0-1.0) k/uL Eosinophils # 0.1 (0-0.7) k/uL Basophils # 0.1 (0-0.2) k/uL Sodium 125 L (137-145) mmol/L Potassium 5.2 H (3.5-5.1) mmol/L Chloride 98 (98-107) mmol/L Carbon Dioxide 20 L (22-30) mmol/L Anion Gap 7 mmol/L BUN 20 (9-20) mg/dL Creatinine 1.33 H (0.66-1.25) mg/dL Est GFR (CKD-EPI)AfAm 60 (>60 ml/min/1.73 sqM) Est GFR (CKD-EPI)NonAf 52 (>60 ml/min/1.73 sqM) Glucose 99 (74-99) mg/dL Plasma Lactic Acid Tushar 1.1 (0.7-2.0) mmol/L Calcium 8.8 (8.4-10.2) mg/dL Magnesium 1.8 (1.6-2.3) mg/dL Total Bilirubin 0.6 (0.2-1.3) mg/dL AST 25 (17-59) U/L ALT 16 (4-49) U/L Alkaline Phosphatase 45 (38-126) U/L Creatine Kinase 127 (55-170) U/L C-Reactive Protein 1.3 H (<1.0) mg/dL Total Protein 6.1 L (6.3-8.2) g/dL Albumin 3.9 (3.5-5.0) g/dL - Radiology Data Radiology results: report reviewed, image reviewed Disposition Clinical Impression: Intramuscular hematoma, Status post left knee replacement, Hyponatremia Disposition: ADMITTED IP TO THIS HOSP
[2024-04-29] MEDS: SODIUM CHLORIDE 0.9% 1,000 ML IV STA (16:07)
[2024-04-29] MEDS: VANCOMYCIN 1,500 MG in SODIUM CHLORIDE 0.9% 500 ML 500 ML IVPB STA (16:23)
[2024-04-29] MEDS: HYDROmorphone 0.5 MG/0.5 ML SYRINGE IVP STA (16:23)
[2024-04-29 16:36] LABS: Basophils # (A) 0.1 k/uL (0-0.2); Basophils % (A) 1 %; Eosinophils # (A) 0.1 k/uL (0-0.7); Eosinophils % (A) 1 %; HCT 28.2 % (39.0-53.0); HGB 9.1 gm/dL (13.0-17.5); Lymphocytes # (A) 1.7 k/uL (1.0-4.8); Lymphocytes % (A) 17 %; MCH 30.1 pg (25.0-35.0); MCHC 32.2 g/dL (31.0-37.0); MCV 93.4 fL (80.0-100.0); Mean Platelet Volume 7.6; Monocytes # (A) 0.8 k/uL (0-1.0); Monocytes % (A) 7 %; Neutrophils # (A) 7.5 k/uL (1.3-7.7); Neutrophils % (A) 72 %; Platelet Count 405 k/uL (150-450); RBC 3.01 m/uL (4.30-5.90); RDW 13.1 % (11.5-15.5); WBC 10.3 k/uL (3.8-10.6)
[2024-04-29 16:42] LABS: ALT 16 U/L (4-49); AST 25 U/L (17-59); African American GFR (CKD) 60 (>60 ml/min/1.73 sqM); Albumin 3.9 g/dL (3.5-5.0); Alkaline Phosphatase 45 U/L (38-126); Anion Gap 7 mmol/L; Blood Urea Nitrogen 20 mg/dL (9-20); C Reactive Protein 1.3 mg/dL (<1.0); Calcium 8.8 mg/dL (8.4-10.2); Carbon Dioxide 20 mmol/L (22-30); Chloride 98 mmol/L (98-107); Creatine Kinase 127 U/L (55-170); Glucose 99 mg/dL (74-99); Magnesium 1.8 mg/dL (1.6-2.3); Non-African American GFR(CKD) 52 (>60 ml/min/1.73 sqM); Potassium 5.2 mmol/L (3.5-5.1); Sodium 125 mmol/L (137-145); Total Bilirubin 0.6 mg/dL (0.2-1.3); Total Protein 6.1 g/dL (6.3-8.2)
[2024-04-29] MEDS: CALCIUM GLUCONATE IN NACL 1 GM in SALINE 1 100ML.BAG IVPB ONE (17:44)
[2024-04-29] MEDS ORDERED: CYCLOBENZAPRINE 10 MG TAB PO PRN (18:44)
--- NOTE | 2024-04-29 19:04 | CT ---
EXAMINATION TYPE: CT lower extremity LT w con CT DLP: 1127.6 mGycm, Automated exposure control for dose reduction was used. DATE OF EXAM: 04/29/2024 6:18 PM COMPARISON: 03/27/2024 CLINICAL INDICATION:Male, 78 years old with history of Postop pain and swelling; PHH, Postop knee rep lacement pain and swelling. TECHNIQUE: Axial images were obtained of the CT lower extremity LT w con, Additional coronal and sagi ttal reformatted images and soft tissue and bone window were obtained for review. . Contrast used:80ml mL of Isovue 300 with IV Contrast, (None if empty) Oral contrast used: (None if empty) FINDINGS: There is abnormal fullness within the left anterior thigh compartment involving the vastus intermedius which is thickened extending from the knee to the proximal thigh. This extends at least f rom near the origins of the proximal thigh and extends the length of the vastus intermedialis Additio natalia there is heterogenous joint effusion in the left knee. He. Intact. No evidence of fracture. Ant erior skin joey are present. Visualized vasculature appears intact. Visualization of the right knee demonstrates total right hip arthroplasty with hardware intact. Total right knee arthroplasty with hardware intact. No evidence for right lower extremity acute process. B ilateral fat-containing inguinal hernias. Scattered colonic diverticula. IMPRESSION: 1. Enlarged heterogenous anterior joint compartment involving the left vastus intermedius muscle tho ught to represent large intramuscular hematoma. Findings extends from near its origin to insertion in feriorly. 2. Left knee arthroplasty with large left knee joint effusion likely representing blood products. 3. Bilateral total knee arthroplasty and right hip arthroplasty with hardware intact. No evidence of fracture.
[2024-04-29] MEDS ORDERED: HYDROmorphone 0.5 MG/0.5 ML SYRINGE IVP PRN (19:12)
[2024-04-29] MEDS ORDERED: ONDANSETRON 4 MG/2 ML VIAL IVP PRN (19:12)
[2024-04-29] MEDS ORDERED: NALOXONE 0.4 MG/ML 1 ML VIAL IV PRN (19:12)
[2024-04-29] MEDS ORDERED: HYDROmorphone 1 MG/ML 1 ML SYRINGE IVP PRN (19:12)
[2024-04-29] MEDS ORDERED: ACETAMINOPHEN TAB 325 MG TAB PO PRN (19:12)
[2024-04-29] MEDS: CEFEPIME 2 GM in SODIUM CHLORIDE 0.9% 100 ML IVPB SCH (20:28)
[2024-04-29] MEDS: DOCUSATE 100 MG CAP PO SCH (20:47)
[2024-04-29] MEDS: FENOFIBRATE 160 MG TAB PO SCH (20:48)
[2024-04-29] MEDS: oxyCODONE-APAP 5-325MG 1 EACH TAB PO PRN (20:48)
[2024-04-29] MEDS: FAMOTIDINE 20 MG TAB PO SCH (20:49)
[2024-04-29] MEDS: NIACIN TR 500 MG CAPLET PO SCH (20:51)
[2024-04-29] MEDS: ETODOLAC 400 MG TAB PO SCH (20:52)
[2024-04-29] MEDS ORDERED: FIBER CHOICE PO SCH (21:00)
[2024-04-29 23:11] LABS: Erythrocyte Sedimentation Rate 23 mm/Hr (0-20)
[2024-04-29 23:20] LABS: Partial Thromboplastin Time 25.7 sec (22.0-30.0); Prothrombin Time 11.3 sec (10.0-12.5)
[2024-04-30] MEDS: PANTOPRAZOLE 40 MG/10 ML VIAL IV SCH (08:32)
[2024-04-30] MEDS: VANCOMYCIN 1,500 MG in SODIUM CHLORIDE 0.9% 500 ML 500 ML IVPB SCH (08:32)
[2024-04-30] MEDS: PROPRANOLOL LA 60 MG CAP.SA.24H PO SCH (08:33)
[2024-04-30] MEDS ORDERED: NON FORMULARY DRUG (Lutein [Lutein] 20 MG Capsule) PO SCH (09:00)
--- NOTE | 2024-04-30 10:49 | P.HPOR ---
History of Present Illness H&P Date: 04/30/24 This is a 78-year-old male who is admitted for an intramuscular hematoma. Patient is status post left total knee arthroplasty on 03/27/[address] Fabio Murphy. Patient developed a hematoma postoperatively and had an evacuation of left knee hematoma on 04/19/2024. Patient was followed closely as an outpatient and was doing well, but recently developed increased pain in the left thigh. Patient was evaluated in the emergency room at [facility] on 04/29/2024 and subsequently transferred to [facility] for further evaluation. A CT report of the left lower extremity revealed an enlarged heterogenous anterior joint compartment involving the left vastus intermedius muscle thought to represent large intramuscular hematoma. Findings extend from near its origin to insertion inferiorly. Patient is also being evaluated for hyponatremia and hyperkalemia. Patient is seen and evaluated at bedside today in the emergency room and states that his knee has not been draining and he is doing well this morning. Patient denies any fever/chills, chest pain, shortness breath, abdominal pain, numbness, weakness or tingling. Patient's past medical history is significant for hyperlipidemia, hypertension and osteoarthritis. Review of Systems See HPI. Past Medical History Past Medical History: Hyperlipidemia, Hypertension, Osteoarthritis (OA) Additional Past Medical History / Comment(s): HARD OF HEARING-BILATERAL HEARING AIDES, benign essential tremor History of Any Multi-Drug Resistant Organisms: None Reported Past Surgical History: Adenoidectomy, Joint Replacement, Orthopedic Surgery, Tonsillectomy Additional Past Surgical History / Comment(s): Rt. TKA, ORIF left ankle, bunionectomy RIGHT FOOT, partial amputation right middle finger, rhinoplasty, replaced knuckle @base of right index finger, Rt. DONAVAN 2019, bilat. cataract surgery Past Anesthesia/Blood Transfusion Reactions: No Reported Reaction Past Psychological History: No Psychological Hx Reported Smoking Status: Never smoker Past Alcohol Use History: Daily Past Drug Use History: Marijuana - Past Family History Brother(s) Family Medical History: Cancer Additional Family Medical History / Comment(s): pancreatic cancer Sister(s) Family Medical History: Cancer Additional Family Medical History / Comment(s): ovarian cancer Medications and Allergies Home Medications Medication Instructions Recorded Confirmed Type Fenofibrate [Lofibra] 160 mg PO HS 06/23/16 04/29/24 History Famotidine [Pepcid] 20 mg PO HS 06/02/20 04/29/24 History Diclofenac Sodium [Voltaren] 75 mg PO BID 03/21/24 04/29/24 History Lutein 20 mg PO DAILY 03/21/24 04/29/24 History oxyCODONE-APAP 5-325MG [Percocet 1 tab PO Q6HR PRN #20 tab 03/28/24 04/29/24 Rx 5-325 mg] Cephalexin [Keflex] 500 mg PO QID 04/29/24 04/29/24 History Cyclobenzaprine [Flexeril] 10 mg PO TID PRN 04/29/24 04/29/24 History Docusate [Colace] 200 mg PO HS 04/29/24 04/29/24 History Fiber Choice 2 cap PO HS 04/29/24 04/29/24 History Niacin [Niavasc] 500 mg PO HS 04/29/24 04/29/24 History Propranolol LA [Inderal LA] 60 mg PO DAILY 04/29/24 04/29/24 History Allergies Allergy/AdvReac Type Severity Reaction Status Date / Time Zgcsseo-OWK-CtD Reductase AdvReac muscle Verified 04/29/24 18:21 Inhibitor cramps [Yvwxcdx-Dgp-Obq Reductase Inhibitor] Physical Examination Vital signs are stable. Patient is in no acute distress and is alert and oriented 3. There is mild swelling of the left thigh and left lower extremity. Compartments are soft. There is no erythema or drainage from the incision. Vern are removed today and incision is clean, dry, and intact. Calf is soft and nontender to palpation. Patient has full foot and ankle motion without pain or difficulty. Sensation intact. Neurovascular status and circulatory status are intact. Head is normocephalic and atraumatic. Exams of the right lower extremity and bilateral upper extremities are within normal limits. Results A CT report of the left lower extremity dated 04/29/2024: 1: Enlarged heterogenous anterior joint compartment involving the left vastus i ntermedius muscle to represent large intramuscular hematoma. Findings extend near its origin to insertion inferiorly. 2: Left knee arthroplasty with large left knee joint effusion likely representing blood products. 3. Bilateral total knee arthroplasty and right hip arthroplasty with hardware intact. No evidence of fracture. - Labs Labs: Abnormal Lab Results - Last 24 Hours (Table) 04/29/24 04/29/24 04/30/24 Range/Units 16:15 16:15 05:58 RBC 3.01 L (4.30-5.90) m/uL Hgb 9.1 L (13.0-17.5) gm/dL Hct 28.2 L (39.0-53.0) % ESR 23 H (0-20) mm/Hr Sodium 125 L (137-145) mmol/L Potassium 5.2 H (3.5-5.1) mmol/L Carbon Dioxide 20 L (22-30) mmol/L Creatinine 1.33 H (0.66-1.25) mg/dL Est GFR (CKD-EPI) 52 L (>=60) C-Reactive Protein 1.3 H (<1.0) mg/dL Total Protein 6.1 L (6.3-8.2) g/dL H & H 04/29/24 Range/Units 16:15 Hgb 9.1 L (13.0-17.5) gm/dL Hct 28.2 L (39.0-53.0) % Coagulation 04/29/24 Range/Units 23:02 INR 1.0 (<1.2) Result Diagrams: 04/29/24 16:15 04/30/24 05:58 Assessment and Plan Assessment: Status post left total knee arthroplasty on 03/27/2024. Status post evacuation of left knee hematoma on 04/19/2024. (1) S/P evacuation of hematoma Current Visit: Yes Status: Acute Code(s): Z98.890 - OTHER SPECIFIED POSTPROCEDURAL STATES SNOMED Code(s): 053644275 (2) Hyponatremia Current Visit: Yes Status: Acute Code(s): E87.1 - HYPO-OSMOLALITY AND HYPONATREMIA SNOMED Code(s): 03476208 (3) Intramuscular hematoma Current Visit: Yes Status: Acute Code(s): T14.8XXA - OTHER INJURY OF UNSPECIFIED BODY REGION, INITIAL ENCOUNTER SNOMED Code(s): 547453797 (4) Status post left knee replacement Current Visit: Yes Status: Acute Code(s): Z96.652 - PRESENCE OF LEFT ARTIFICIAL KNEE JOINT SNOMED Code(s): 2451984924138 Plan: 1. Overton are removed today. Incision is well-healed. 2. CT of the left lower extremity is reviewed. There are no plans for surgical intervention. 3. Appreciate input from internal medicine and nephrology. 4. Patient's white blood cell count is within normal limits. Patient is afebrile. 5. Due to the patient's recurrent hematomas a consult for hematology is placed today.
--- NOTE | 2024-04-30 11:06 | P.NPCON ---
History of Present Illness - Reason for Consult acute renal failure - History of Present Illness Reason for consultation: Acute kidney injury History of present illness: Patient is a 78-year-old male seen in renal consultation for acute kidney injury. Patient's creatinine this admission has been stable in the range of 1.3-1.4. Sodium level noted to be 125 on admission. Patient came to the hospital due to pain in his left thigh. Patient states he underwent left knee surgery March 27, 2024. About 3 weeks later he developed a hematoma which was evacuated. Patient states he started physical therapy but only had 1 session. He subsequently developed left thigh pain and came to the hospital. He did receive 1 L fluid bolus. Oral intake has been poor the last week. No vomiting or diarrhea. He does admit to drinking half a gallon of water as well as couple of cups of coffee on a daily basis. Also admits to drinking 1 to 2 glasses of wine. He denies history of malignancy. Patient does take nonsteroidals on a daily basis and has been doing so for years. Denies chest pain or shortness of breath. Hemodynamically stable. Vital signs are stable. General: No acute distress. HEENT: Head exam is unremarkable. LUNGS: No audible rhonchi or wheezes. HEART: Rate and Rhythm are regular. ABDOMEN: Nontender. EXTREMITITES: No edema. Past Medical History Past Medical History: Hyperlipidemia, Hypertension, Osteoarthritis (OA) Additional Past Medical History / Comment(s): HARD OF HEARING-BILATERAL HEARING AIDES, benign essential tremor History of Any Multi-Drug Resistant Organisms: None Reported Past Surgical History: Adenoidectomy, Joint Replacement, Orthopedic Surgery, Tonsillectomy Additional Past Surgical History / Comment(s): Rt. TKA, ORIF left ankle, bunionectomy RIGHT FOOT, partial amputation right middle finger, rhinoplasty, replaced knuckle @base of right index finger, Rt. DONAVAN 2019, bilat. cataract surgery Past Anesthesia/Blood Transfusion Reactions: No Reported Reaction Past Psychological History: No Psychological Hx Reported Smoking Status: Never smoker Past Alcohol Use History: Daily Past Drug Use History: Marijuana - Past Family History Brother(s) Family Medical History: Cancer Additional Family Medical History / Comment(s): pancreatic cancer Sister(s) Family Medical History: Cancer Additional Family Medical History / Comment(s): ovarian cancer Medications and Allergies Home Medications Medication Instructions Recorded Confirmed Type Fenofibrate [Lofibra] 160 mg PO HS 06/23/16 04/29/24 History Famotidine [Pepcid] 20 mg PO HS 06/02/20 04/29/24 History Diclofenac Sodium [Voltaren] 75 mg PO BID 03/21/24 04/29/24 History Lutein 20 mg PO DAILY 03/21/24 04/29/24 History oxyCODONE-APAP 5-325MG [Percocet 1 tab PO Q6HR PRN #20 tab 03/28/24 04/29/24 Rx 5-325 mg] Cephalexin [Keflex] 500 mg PO QID 04/29/24 04/29/24 History Cyclobenzaprine [Flexeril] 10 mg PO TID PRN 04/29/24 04/29/24 History Docusate [Colace] 200 mg PO HS 04/29/24 04/29/24 History Fiber Choice 2 cap PO HS 04/29/24 04/29/24 History Niacin [Niavasc] 500 mg PO HS 04/29/24 04/29/24 History Propranolol LA [Inderal LA] 60 mg PO DAILY 04/29/24 04/29/24 History Allergies Allergy/AdvReac Type Severity Reaction Status Date / Time Maowajq-JKJ-AxW Reductase AdvReac muscle Verified 04/29/24 18:21 Inhibitor cramps [Mdztitz-Tos-Mxf Reductase Inhibitor] Physical Exam Vitals: Vital Signs Temp Pulse Resp BP Pulse Ox 04/30/24 10:38 69 18 147/69 99 04/30/24 08:27 97.4 F L 70 18 127/78 98 04/30/24 06:10 70 16 144/77 97 04/30/24 04:58 69 18 134/78 97 04/30/24 02:48 69 14 132/84 97 04/30/24 01:50 81 16 131/83 97 04/30/24 00:27 70 16 148/86 97 04/29/24 23:20 75 20 138/76 100 04/29/24 21:00 73 18 120/80 95 04/29/24 17:19 85 16 145/80 95 04/29/24 15:21 98.4 F 72 16 132/101 99 Intake and Output 04/29/24 04/30/24 04/30/24 22:59 06:59 14:59 Other: Weight 96.615 kg Results - Lab Results Most recent lab results Calcium 8.8 mg/dL (8.4-10.2) 04/29/24 16:15 Magnesium 1.8 mg/dL (1.6-2.3) 04/29/24 16:15 04/29/24 16:15 04/30/24 05:58 Assessment and Plan Plan: Assessment: 1. Acute kidney injury versus chronic kidney disease secondary to chronic NSAID use. Creatinine stable at 1.4 today. 2. Hyponatremia from excess fluid intake and poor solute intake. Also worsened with the use of NSAIDs. 3. Metabolic acidosis secondary to acute kidney injury. 4. Status post left total knee arthroplasty March 27, 2024 with evacuation of hematoma April 19, 2024. Orthopedic surgery following. 5. Anemia. Rule out iron deficiency. Plan: Encouraged oral intake. Add 1500 cc fluid restriction. Check TSH. Avoid nephrotoxins, including NSAIDs. Stop etodolac. Continue to monitor renal function and urine output. Check iron studies. Thank you for the consultation. I will continue to follow the patient with you during his hospital stay.
--- NOTE | 2024-04-30 11:23 | P.CONS ---
History of Present Illness - Reason for Consult acute renal failure - History of Present Illness 78-year-old male he had a recent left knee surgery came in after developed hematoma with severe pain. Patient was evaluated by orthopedic surgery conservative management pain control and the patient probably will be discharged tomorrow. Although patient is found to have low sodium of 125 because of severe pain. Patient has SIADH secondary to that. Patient admits to drinking 1 to 2 glasses of wine but not on regular basis patient is euvolemic. Patient is hyperkalemic as well. Patient serum creatinine is 1.4 baseline is the same. REVIEW OF SYSTEMS: CONSTITUTIONAL: No fever, no malaise, no fatigue. HEENT: No recent visual problems or hearing problems. Denied any sore throat. CARDIOVASCULAR: No chest pain, orthopnea, PND, no palpitations, no syncope. PULMONARY: No shortness of breath, no cough, no hemoptysis. GASTROINTESTINAL: No diarrhea, no nausea, no vomiting, no abdominal pain. NEUROLOGICAL: No headaches, no weakness, no numbness. HEMATOLOGICAL: Denies any bleeding or petechiae. GENITOURINARY: Denies any burning micturition, frequency, or urgency. MUSCULOSKELETAL/RHEUMATOLOGICAL: Left knee pain as mentioned above ENDOCRINE: Denies any polyuria or polydipsia. The rest of the 14-point review of systems is negative. PHYSICAL EXAMINATION: GENERAL: The patient is alert and oriented x3, not in any acute distress. Well developed, well nourished. HEENT: Pupils are round and equally reacting to light. EOMI. No scleral icterus. No conjunctival pallor. Normocephalic, atraumatic. No pharyngeal erythema. No thyromegaly. CARDIOVASCULAR: S1 and S2 present. No murmurs, rubs, or gallops. PULMONARY: Chest is clear to auscultation, no wheezing or crackles. ABDOMEN: Soft, nontender, nondistended, normoactive bowel sounds. No palpable organomegaly. MUSCULOSKELETAL: No joint swelling or deformity. EXTREMITIES: No cyanosis, clubbing, or pedal edema. NEUROLOGICAL: Gross neurological examination did not reveal any focal deficits. SKIN: No rashes. Assessment and plan -Hyponatremia euvolemic hyponatremia, patient is on fluid restriction at this time may be SIADH secondary to pain. -Possible acute renal failure secondary to chronic NSAID use patient present creatinine is 1.4 hold off on nonsteroidal anti-inflammatory medications -Hyperkalemia: Secondary to possible acute renal failure patient was treated for this we will repeat the labs tomorrow and -Left knee arthroplasty with hematoma pain medications and further management as per orthopedic surgery -Hyperlipidemia -Hypertension For evaluation chronic medical problems patient will be resumed on home medications DVT prophylaxis: As per primary service Past Medical History Past Medical History: Hyperlipidemia, Hypertension, Osteoarthritis (OA) Additional Past Medical History / Comment(s): HARD OF HEARING-BILATERAL HEARING AIDES, benign essential tremor History of Any Multi-Drug Resistant Organisms: None Reported Past Surgical History: Adenoidectomy, Joint Replacement, Orthopedic Surgery, Tonsillectomy Additional Past Surgical History / Comment(s): Rt. TKA, ORIF left ankle, bunionectomy RIGHT FOOT, partial amputation right middle finger, rhinoplasty, replaced knuckle @base of right index finger, Rt. DONAVAN 2019, bilat. cataract surgery Past Anesthesia/Blood Transfusion Reactions: No Reported Reaction Past Psychological History: No Psychological Hx Reported Smoking Status: Never smoker Past Alcohol Use History: Daily Past Drug Use History: Marijuana - Past Family History Brother(s) Family Medical History: Cancer Additional Family Medical History / Comment(s): pancreatic cancer Sister(s) Family Medical History: Cancer Additional Family Medical History / Comment(s): ovarian cancer Medications and Allergies Home Medications Medication Instructions Recorded Confirmed Type Fenofibrate [Lofibra] 160 mg PO HS 06/23/16 04/29/24 History Famotidine [Pepcid] 20 mg PO HS 06/02/20 04/29/24 History Diclofenac Sodium [Voltaren] 75 mg PO BID 03/21/24 04/29/24 History Lutein 20 mg PO DAILY 03/21/24 04/29/24 History oxyCODONE-APAP 5-325MG [Percocet 1 tab PO Q6HR PRN #20 tab 03/28/24 04/29/24 Rx 5-325 mg] Cephalexin [Keflex] 500 mg PO QID 04/29/24 04/29/24 History Cyclobenzaprine [Flexeril] 10 mg PO TID PRN 04/29/24 04/29/24 History Docusate [Colace] 200 mg PO HS 04/29/24 04/29/24 History Fiber Choice 2 cap PO HS 04/29/24 04/29/24 History Niacin [Niavasc] 500 mg PO HS 04/29/24 04/29/24 History Propranolol LA [Inderal LA] 60 mg PO DAILY 04/29/24 04/29/24 History Allergies Allergy/AdvReac Type Severity Reaction Status Date / Time [id number]-[id number] Reductase AdvReac muscle Verified 04/29/24 18:21 Inhibitor cramps [Mqvavjh-Mtq-Bhq Reductase Inhibitor] Physical Exam Vitals: Vital Signs Temp Pulse Resp BP Pulse Ox 04/30/24 10:38 69 18 147/69 99 04/30/24 08:27 97.4 F L 70 18 127/78 98 04/30/24 06:10 70 16 144/77 97 04/30/24 04:58 69 18 134/78 97 04/30/24 02:48 69 14 132/84 97 04/30/24 01:50 81 16 131/83 97 04/30/24 00:27 70 16 148/86 97 04/29/24 23:20 75 20 138/76 100 04/29/24 21:00 73 18 120/80 95 04/29/24 17:19 85 16 145/80 95 04/29/24 15:21 98.4 F 72 16 132/101 99 Intake and Output 04/29/24 04/30/24 04/30/24 22:59 06:59 14:59 Other: Weight 96.615 kg Results CBC & Chem 7: 04/29/24 16:15 04/30/24 05:58 Labs: Abnormal Lab Results - Last 24 Hours (Table) 04/29/24 04/29/24 04/30/24 Range/Units 16:15 16:15 05:58 RBC 3.01 L (4.30-5.90) m/uL Hgb 9.1 L (13.0-17.5) gm/dL Hct 28.2 L (39.0-53.0) % ESR 23 H (0-20) mm/Hr Sodium 125 L (137-145) mmol/L Potassium 5.2 H (3.5-5.1) mmol/L Carbon Dioxide 20 L (22-30) mmol/L Creatinine 1.33 H (0.66-1.25) mg/dL Est GFR (CKD-EPI) 52 L (>=60) C-Reactive Protein 1.3 H (<1.0) mg/dL Total Protein 6.1 L (6.3-8.2) g/dL
[2024-04-30 14:48] LABS: % Iron Saturation 9.89 (15.00-50.00)
--- NOTE | 2024-05-01 11:49 | P.PN ---
Subjective Patient is seen in follow-up for acute kidney injury. Morning labs pending. Admits to good urine output. No vomiting or diarrhea. Vital signs are stable. General: No acute distress. HEENT: Head exam is unremarkable. LUNGS: No audible rhonchi or wheezes. HEART: Rate and Rhythm are regular. F ABDOMEN: Nontender. EXTREMITITES: No edema. Objective - Vital Signs Vital signs: Vital Signs Temp 98.6 F 05/01/24 07:25 Pulse 85 05/01/24 07:25 Resp 17 05/01/24 07:25 BP 160/77 05/01/24 07:25 Pulse Ox 97 05/01/24 07:25 FiO2 Intake & Output 04/30/24 05/01/24 05/01/24 18:59 06:59 18:59 Output Total 1200 Balance -1200 Weight 96.615 kg Output: Urine 1200 Other: Voiding Method Urinal # Voids 1 - Labs CBC & Chem 7: 04/29/24 16:15 04/30/24 05:58 Labs: Abnormal Lab Results - Last 24 Hours (Table) 04/30/24 Range/Units 05:58 Iron 36 L (65-175) UG/DL % Saturation 9.89 L (15.00-50.00) Ferritin 497.0 H (22.0-322.0) ng/mL Microbiology - Last 24 Hours (Table) 04/29/24 16:15 Blood Culture - Preliminary Blood 04/29/24 16:00 Blood Culture - Preliminary Blood Assessment and Plan Plan: Assessment: 1. Acute kidney injury versus chronic kidney disease secondary to chronic NSAID use. Creatinine stable at 1.4 yesterday. 2. Hyponatremia from excess fluid intake and poor solute intake. Also worsened with the use of NSAIDs. 3. Metabolic acidosis secondary to acute kidney injury. 4. Status post left total knee arthroplasty March 27, 2024 with evacuation of hematoma April 19, 2024. Orthopedic surgery following. 5. Anemia. Iron deficiency noted. Plan: Encouraged oral intake. Maintain 1500 cc fluid restriction. Follow-up TSH. Avoid nephrotoxins, including NSAIDs. Stopped etodolac. Continue to monitor renal function and urine output. Add IV iron.
[2024-05-01 12:51] LABS: Blood Urea Nitrogen 12.5 mg/dL (9.0-27.0); Carbon Dioxide 22.1 mmol/L (21.6-31.8); Chloride 98 mmol/L (96-109); Glucose 96 mg/dL (70-110); Magnesium 1.7 mg/dL (1.5-2.4); Potassium 4.8 mmol/L (3.5-5.5); Sodium 130 mmol/L (135-145)
[2024-05-01] MEDS: SODIUM FERRIC GLUCONAT-SUCROSE 125 MG in SODIUM CHLORIDE 0.9% 100 ML IVPB SCH (13:16)
--- NOTE | 2024-05-01 13:33 | P.DS ---
Providers Date of admission: 04/29/24 19:24 Expected date of discharge: 05/01/24 Attending physician: Fabio Murphy Consults: 04/29/24 19:12 Consult Physician Urgent Consulting Provider: Dragan Hayes Consult Reason/Comments: Hyponatremia Do you want consulting provider notified?: Yes Consult Physician Urgent Consulting Provider: Barbara Treadwell Consult Reason/Comments: Medical management Do you want consulting provider notified?: Yes 04/30/24 09:16 Consult Physician Routine Consulting Provider: Cornell Simms Consult Reason/Comments: recurrent hematoma Do you want consulting provider notified?: Yes Primary care physician: Art Davenport - Discharge Diagnosis(es) (1) S/P evacuation of hematoma Current Visit: Yes Status: Acute (2) Hyponatremia Current Visit: Yes Status: Acute (3) Intramuscular hematoma Current Visit: Yes Status: Acute (4) Status post left knee replacement Current Visit: Yes Status: Acute Hospital Course: This is a 78-year-old male who is admitted on 04/29/2024 for an intramuscular hematoma. Patient is status post left total knee arthroplasty on 03/27/[address] Fabio Murphy. Patient developed a hematoma postoperatively and had an evacuation of left knee hematoma on 04/19/2024. Patient was followed closely as an outpatient and was doing well, but recently developed increased pain in the left thigh. Patient was evaluated in the emergency room at [facility] on 04/29/2024 and subsequently transferred to [facility] for further evaluation. A CT report of the left lower extremity revealed an enlarged heterogenous anterior joint compartment involving the left vastus intermedius muscle thought to represent large intramuscular hematoma. Findings extend from near its origin to insertion inferiorly. Patient has also been evaluated and treated for hyponatremia and hyperkalemia during this admission. Due to recurrent hematomas the patient was evaluated by hematology as well. Labs and vital signs are stable on day of discharge. Patient has been able to ambulate with physical therapy and his pain is improving. On day of discharge patient's knee incision is healing well. There is no erythema. There is no drainage noted at this time. There is minimal soft tissue swelling to the knee. There is mild soft tissue swelling of the left thigh. Compartments are soft. Patient has full foot and ankle motion without difficulty or pain. Calf is soft and nontender to palpation. Neurovascular status to the left lower extremity is intact. Patient is discharged home in good condition. Please see med rec for accurate list of home medications. Plan - Discharge Summary Discharge Rx Participant: No New Discharge Prescriptions: Continue Fenofibrate [Lofibra] 160 mg PO HS Famotidine [Pepcid] 20 mg PO HS oxyCODONE-APAP 5-325MG [Percocet 5-325 mg] 1 tab PO Q6HR PRN #20 tab PRN Reason: Pain Docusate [Colace] 200 mg PO HS Fiber Choice 2 cap PO HS Cephalexin [Keflex] 500 mg PO QID Cyclobenzaprine [Flexeril] 10 mg PO TID PRN PRN Reason: Muscle Pain Lutein 20 mg PO DAILY Propranolol LA [Inderal LA] 60 mg PO DAILY Niacin [Niavasc] 500 mg PO HS Discontinued Diclofenac Sodium [Voltaren] 75 mg PO BID Discharge Medication List Fenofibrate [Lofibra] 160 mg PO HS 06/23/16 [History] Famotidine [Pepcid] 20 mg PO HS 06/02/20 [History] Lutein 20 mg PO DAILY 03/21/24 [History] oxyCODONE-APAP 5-325MG [Percocet 5-325 mg] 1 tab PO Q6HR PRN #20 tab 03/28/24 [Rx] Cephalexin [Keflex] 500 mg PO QID 04/29/24 [History] Cyclobenzaprine [Flexeril] 10 mg PO TID PRN 04/29/24 [History] Docusate [Colace] 200 mg PO HS 04/29/24 [History] Fiber Choice 2 cap PO HS 04/29/24 [History] Niacin [Niavasc] 500 mg PO HS 04/29/24 [History] Propranolol LA [Inderal LA] 60 mg PO DAILY 04/29/24 [History] Follow up Appointment(s)/Referral(s): Fabio Murphy DO [Doctor of Osteopathic Medicine] - 2 Weeks Art Davenport MD [Primary Care Provider] - 1-2 days Activity/Diet/Wound Care/Special Instructions: Weightbearing as tolerated with a walker. Please follow up with [facility] in 2 weeks and call with any questio ns or concerns, . Discharge Disposition: HOME WITH HOME HEALTH SERVICES
[2024-05-01 14:02] VITALS: BP 120/64; PULSE 88; RESP 16; TEMP 97.9
[2024-05-01] MEDS ORDERED: CEFEPIME 2 GM in SODIUM CHLORIDE 0.9% 100 ML IVPB SCH (15:00)
[2024-05-02] MEDS ORDERED: VANCOMYCIN TROUGH DUE 1 EACH MISC MISCELLANE ONE (07:00)
== END 2024-05-01 14:39 | disposition home health service (06) ==
LOC: EC 15:10 → 4SSUR 19:24
PROVIDERS: ADMIT Orthopaedic Surgery; ATTEND Orthopaedic Surgery
DX: M96.840 Postprocedural hematoma of a musculoskeletal structure following a musculoskeletal system procedure (principal)
CPT/HCPCS: 96376; 96366 ×3; 96367 ×3; 96361; 96365; 96375 ×2; 99284; 36415; 93005; 97161; 80053; 80048; 85652; 84443; 82728; 82565; 82550; 83540; 83550; 83605; 83735 ×2; 85025; 85384; 85610; 85730; 86140; 87040; 85246; 73701; G0378 ×3; J3370 ×3; J2360; J3360; J0692 ×3; J2916; J1170 ×2; J1885; C9113 ×2; Q9967; J0613